=== PATIENT | female | born 1970 | race Caucasian/White ===

== ENCOUNTER 2017-06-01 20:56 | Emergency (ER) | payer OTHER ==
[~2017-06-01 20:56] MED LIST: PREDNISONE10 M2 PO
[2017-06-01 21:21] VITALS: BP 111/74
[2017-06-01] MEDS ORDERED: FLUOXETINE HCL20 M2 PO (21:22)
[2017-06-01] MEDS ORDERED: TRAZODONE HCL50 M1 PO (21:22)
[2017-06-01] MEDS ORDERED: CHANTIX1 MG PO (21:22)
[2017-06-01] MEDS ORDERED: LYRICA75 M1 PO (21:23)
[2017-06-01] MEDS ORDERED: ALPRAZOLAM0.25 M1 PO (21:23)
[2017-06-01] MEDS ORDERED: ABILIFY10 M1 PO (21:23)
[2017-06-01] MEDS ORDERED: INCRUSE INH (21:24)
[2017-06-01] MEDS ORDERED: CYCLOBENZAPRINE10 M1 PO (22:52)
[2017-06-01] MEDS ORDERED: IBUPROFEN800 M1 PO (22:52)
--- NOTE | 2017-06-01 22:53 | ED GENERAL ADULT ---
History of Present Illness General Chief Complaint: Low Back Pain/Injury Stated Complaint: SHOULDER/LOWER BACK PAIN S/P LIFTING GARBAGE CANS Source: patient Exam Limitations: no limitations Vital Signs & Intake/Output Vital Signs & Intake/Output Vital Signs Date Time Temp Pulse Resp B/P B/P Pulse O2 O2 Flow FiO2 Mean Ox Delivery Rate 06/011 78 20 111/74 98 ED Intake and Output 06/02 0000 06/01 1200 Intake Total 150 Output Total Balance 150 Intake, Oral 150 Patient 160 lb Weight Allergies Coded Allergies: amoxicillin (Severe, THROAT CLOSES 04/28/17) clavulanic acid (From AUGMENTIN) (Severe, THROAT CLOSES 04/28/17) levofloxacin (From LEVAQUIN) (Severe, THROAT CLOSES 04/28/17) loracarbef (From LORABID) (Severe, THROAT CLOSES 04/28/17) penicillin G (Severe, THROAT CLOSES 04/28/17) Sulfa (Sulfonamide Antibiotics) (Intermediate, RASH 04/28/17) azithromycin (Intermediate, RASH 04/28/17) meperidine (From DEMEROL) (Intermediate, VOMIT 04/28/17) codeine (Intermediate, VOMIT 05/13/17) Reconcile Medications Alprazolam 0.25 MG TABLET 1 TAB PO DAILY NEEDED ANXIETY (Reported) Aripiprazole (Abilify) 10 MG TABLET 1 TAB PO DAILY ANXIETY (Reported) Cyclobenzaprine HCl 10 MG TABLET 1 TAB PO TID PRN pain Fluoxetine HCl 20 MG CAPSULE 1 CAP PO DAILY DEPRESSION (Reported) Ibuprofen 800 MG TABLET 1 TAB PO TID PRN pain [INCRUSE] 1 PUFF INH DAILY COPD (Reported) Pregabalin (Lyrica) 75 MG CAPSULE 1 CAP PO BID ANXIETY (Reported) Trazodone HCl 50 MG TABLET 1 TAB PO QPM SLEEP (Reported) Varenicline Tartrate (Chantix) 1 MG TABLET 1 TAB PO BID SMOKING (Reported) Triage Note: PER PT LIFTING GARBAGE CAN THIS AM CO PAIN TO RT SHOULDER AND LOW BACK NO INCONTINENCE AMBULATORY WITH STIFF GAIT Triage Nurses Notes Reviewed? yes Onset: Abrupt Duration: day(s): (1), constant, continues in ED Timing: single episode today Injury Environment: home Severity: moderate, severe Severity Numbers: 8 No Modifying Factors: none Associated Symptoms: back pain LMP (ages 10-50): unknown : No Patient currently breastfeeds: No HPI: 46-year-old female past medical history of COPD, anxiety, fibromyalgia presents for evaluation of right shoulder pain and right lower back pain and right hip pain. Patient states that she was lifting a heavy garbage can today before the symptoms started. The pain is worse with any type of movement but she is able to walk. She's been taking Excedrin without any improvement. No numbness or tingling no bowel or bladder dysfunction no abdominal pain or fever. There was no direct trauma. (Sky Moreno) Past History Travel History Traveled to [place] past 21 day No Medical History Any Pertinent Medical History? see below for history Neurological: NONE EENT: NONE Cardiovascular: NONE Respiratory: COPD Renal: NONE Musculoskeletal: fibromyalgia Psychiatric: anxiety, depression, PTSD Endocrine: NONE Blood Disorders: NONE Cancer(s): NONE AURIST/Reproductive: NONE Surgical History Surgical History: non-contributory Psychosocial History What is your primary language Albanian Tobacco Use: Never used Family History Hx Contributory? No (Sky Moreno) Review of Systems Review of Systems Constitutional: Reports: no symptoms. EENTM: Reports: no symptoms. Respiratory: Reports: no symptoms. Cardiovascular: Reports: no symptoms. GI: Reports: no symptoms. Genitourinary: Reports: no symptoms. Musculoskeletal: Reports: see HPI, back pain, joint pain, muscle pain, muscle stiffness. Skin: Reports: no symptoms. Neurological/Psychological: Reports: no symptoms. Hematologic/Endocrine: Reports: no symptoms. Immunologic/Allergic: Reports: no symptoms. All Other Systems: Reviewed and Negative (Sky Moreno) Physical Exam Physical Exam General Appearance: well developed/nourished, no apparent distress, alert, awake Head: atraumatic, normal appearance Eyes: Bilateral: normal appearance, PERRL, EOMI. Ears, Nose, Throat: normal pharynx, normal ENT inspection, hearing grossly normal Neck: normal inspection, supple, full range of motion Respiratory: normal breath sounds, chest non-tender, no respiratory distress, lungs clear Cardiovascular: regular rate/rhythm, normal peripheral pulses Peripheral Pulses: 2+ radial (R), 2+ radial (L) Gastrointestinal: soft, non-tender Back: normal inspection, normal range of motion, no vertebral tenderness, right- sided lumbar paraspinous muscles tender to palpation. No bruising swelling and abrasions no step-offs or deformities no midline pain Extremities: normal inspection, no edema, pain to palpation of the right deltoid and right trapezius muscles. No bruising swelling or abrasions. Full range of motion of the right shoulder is intact with pain. There is pain to palpation of the right hip. Patient is able to walk and bear weight no bruising swelling or abrasions. Neurovascular supply is intact bilateral upper and lower extremities Neurologic/Psych: no motor/sensory deficits, awake, alert, oriented x 3, normal gait Skin: intact, normal color, warm/dry Lymphatic: no anterior cervical milagros Core Measures ACS in differential dx? No CVA/TIA Diagnosis: No Sepsis Present: No Sepsis Focused Exam Completed? No (Sky Moreno) Progress Differential Diagnoses I considered the following diagnoses in my evaluation of the patient: [Muscle strain, fracture, muscle tear] Plan of Care: Patient seen and evaluated. She has tenderness in her right shoulder right lower back and right hip after heavy lifting. There was no direct trauma. No bony point tenderness to suggest fracture. Patient is able to walk and bear weight without difficulty. No bruising swelling or abrasions. She is moving all extremities equally. Patient be treated symptomatically with ibuprofen and Flexeril. Advised rest avoid excessive physical activity. Follow-up with primary care doctor. Discussed return precautions patient agrees the plan. Initial ED EKG: none (Sky Moreno) Departure Departure Disposition: HOME OR SELF CARE Condition: Stable Clinical Impression Primary Impression: Muscle strain Referrals: Unknown (PCP) Additional Instructions: Rest, avoid heavy lifting bending or excessive physical activity. Use ibuprofen 800 mg every 8 hours with food as needed for pain. Cyclobenzaprine is a muscle relaxer that can also be used every 8 hours as may cause drowsiness. Make a follow-up with your primary care doctor to review all results of today's visit monitor symptoms return with any concerns. Departure Forms: Customer Survey General Discharge Information Prescriptions: Current Visit Scripts Ibuprofen 1 TAB PO TID PRN pain #30 TAB Cyclobenzaprine HCl 1 TAB PO TID PRN pain #30 TAB (Sky Moreno) PA/BUNDLING MACHINE OPERATOR Co-Sign Statement Statement: ED Attending supervision documentation- [] I saw and evaluated the patient. I have also reviewed all the pertinent lab results and diagnostic results. I agree with the findings and the plan of care as documented in the PA's/BUNDLING MACHINE OPERATOR's documentation. [x] I have reviewed the ED Record and agree with the PA's/BUNDLING MACHINE OPERATOR's documentation. [] Additions or exceptions (if any) to the PAs/BUNDLING MACHINE OPERATOR's note and plan are summarized below: [] (Ruddy BALDERRAMA,Shant Hart) Critical Care Note Critical Care Note Critical Care Time: non-applicable (Kel GAN,Sky)
== END 2017-06-01 23:13 ==
LOC: ERH 20:56
DX: S46.911A Strain of unspecified muscle, fascia and tendon at shoulder and upper arm level, right arm, initial encounter (principal); S39.012A Strain of muscle, fascia and tendon of lower back, initial encounter; X58.XXXA Exposure to other specified factors, initial encounter; Y92.9 Unspecified place or not applicable; Y93.9 Activity, unspecified

== ENCOUNTER 2017-07-30 22:37 | Inpatient (IN) | payer OTHER ==
[~2017-07-30] VITALS: Ht 170.2 cm; Wt 85.3 kg
[~2017-07-30 22:37] MED LIST changes: +ABILIFY10 M1 PO; +ALPRAZOLAM0.25 M1 PO; +CHANTIX1 MG PO; +CYCLOBENZAPRINE10 M1 PO; +FLUOXETINE HCL20 M2 PO; +IBUPROFEN800 M1 PO; +INCRUSE INH; +LYRICA75 M1 PO; +TRAZODONE HCL50 M1 PO
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
[2017-07-30 23:40] LABS: ABSOLUTE BASOPHIL COUNT 0.1 /CUMM (0.0-0.2); ABSOLUTE EOSINOPHIL COUNT 0.3 /CUMM (0.0-0.7); ABSOLUTE GRANULOCYTE CT 5.3 /CUMM (1.4-6.5); ABSOLUTE LYMPH COUNT 2.8 /CUMM (1.2-3.4); ABSOLUTE MONOCYTE COUNT 0.7 /CUMM (0.10-0.60); BASOPHIL % 0.9 % (0.0-2.0); EOSINOPHIL % 3.1 % (0-5); GRANULOCYTE % 58.1 % (42.2-75.2); HEMATOCRIT 44.5 % (37-47); MEAN CORPUSCULAR HGB 30.6 PG (27.0-31.0); MEAN CORPUSCULAR HGB CONC 34.9 G/DL (33.0-37.0); MEAN CORPUSCULAR VOLUME 87.6 FL (81.0-99.0); MEAN PLATELET VOLUME 8.3 FL (7.4-10.4); PLATELET COUNT 332 /CUMM (130-400); RBC DISTRIBUTION WIDTH 13.3 % (11.5-14.5); RED BLOOD CELL CT 5.08 /CUMM (4.20-5.40); WHITE BLOOD CELL COUNT 9.1 /CUMM (4.8-10.8)
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
[2017-07-31 16:28] VITALS: BP 128/64
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
[2017-07-31] MEDS ORDERED: HYDROXYZINE HCL25 M2 PO (16:33)
[2017-07-31 20:19] VITALS: BP 116/66
[2017-08-01 07:41] VITALS: BP 110/58
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
[2017-08-01 12:18] VITALS: BP 109/72
--- NOTE | 2017-08-01 14:37 | History & Physical ---
General Information and HPI MD Statement: I have seen and personally examined IGOR BURGESS and documented this H&P. The patient is a 46 year old F who presented with a patient stated chief complaint of depression and suicidal ideation. . Source of Information: patient Exam Limitations: no limitations History of Present Illness: The patient breanna 46 yo female with h/o anxiety/depression, IBS, and asthma who presented with c/o depression/suicidal ideation after her fiance broke up with her. She [facility] and she planned an overdose. She had a previous attempt last year. At the time of my exam the patient was appropriate and was able to answer questions without difficulty. She did note some dyspnea as was not taking her Incruse. She does note IBS which is aggravated by anxiety, however takes no medication. Allergies/Medications Allergies: Coded Allergies: amoxicillin (Severe, THROAT CLOSES 04/28/17) clavulanic acid (From AUGMENTIN) (Severe, THROAT CLOSES 04/28/17) levofloxacin (From LEVAQUIN) (Severe, THROAT CLOSES 04/28/17) loracarbef (From LORABID) (Severe, THROAT CLOSES 04/28/17) penicillin G (Severe, THROAT CLOSES 04/28/17) Sulfa (Sulfonamide Antibiotics) (Intermediate, RASH 04/28/17) azithromycin (Intermediate, RASH 04/28/17) meperidine (From DEMEROL) (Intermediate, VOMIT 04/28/17) codeine (Intermediate, VOMIT 05/13/17) Home Med list Aripiprazole (Abilify) 10 MG TABLET 1 TAB PO DAILY ANXIETY (Reported) Fluoxetine HCl 20 MG CAPSULE 1 CAP PO DAILY DEPRESSION (Reported) Hydroxyzine Hydrochloride (Atarax) 25 MG TAB ANXIETY (Reported) Ibuprofen 800 MG TABLET 1 TAB PO TID PRN pain Pregabalin (Lyrica) 75 MG CAPSULE 1 CAP PO BID ANXIETY (Reported) Trazodone HCl 50 MG TABLET 1 TAB PO QPM SLEEP (Reported) Compliance With Home Meds: GOOD Past History Travel History Traveled to [place] past 21 day No Medical History Neurological: NONE EENT: NONE Cardiovascular: NONE Respiratory: COPD Gastrointestinal: irritable bowel syndrome Hepatic: NONE Renal: NONE Musculoskeletal: fibromyalgia Psychiatric: anxiety, depression, PTSD Endocrine: NONE Blood Disorders: NONE Cancer(s): NONE 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 . FATHER (HTN, LUNG CANCER). . GRANDPARENTS (DM). Psychosocial History Primary Language: Greek Smoking Status: Current Everyday Smoker ETOH Use: denies use Illicit Drug Use: denies illicit drug use Functional Ability Ambulation: independent Review of Systems Review of Systems Constitutional: Denies: no symptoms. EENTM: Denies: no symptoms. Cardiovascular: Denies: no symptoms. Respiratory: Reports: wheezing (USES INHALERS). GI: Reports: see HPI (IBS- CRAMPS). Genitourinary: Denies: no symptoms. Musculoskeletal: Denies: no symptoms. Skin: Denies: no symptoms (HAS SCARS ON NECK/UP CHEST). Neurological/Psychological: Reports: anxiety, depressed, emotional problems. Hematologic/Endocrine: Denies: no symptoms. Immunologic/Allergic: Denies: no symptoms. Exam & Diagnostic Data Last 24 Hrs of Vital Signs/I&O Vital Signs Date Time Temp Pulse Resp B/P B/P Pulse O2 O2 Flow FiO2 Mean Ox Delivery Rate 08/01 1953 98.4 83 101/67 08/01 1625 83 108/71 08/01 1218 67 109/72 06 0741 97.0 73 110/58 Intake & Output 08/01 1600 08/01 0800 08/01 0000 Intake Total Output Total Balance Patient 188 lb Weight Physical Exam General Appearance Alert, Oriented X3, Cooperative, No Acute Distress Skin No Rashes, No Breakdown, HYPOPIG SCARS ON NECK/UP CHEST HEENT Atraumatic, PERRLA, EOMI (WEARS GLASSES FOR READING) Neck Supple, No JVD, No thryomegaly, +2 Carotid Pulse wo Bruit, No LAD Cardiovascular Regular Rate, Normal S1, Normal S2, No Murmurs Lungs Clear to Auscultation, Normal Air Movement Abdomen Normal Bowel Sounds, Soft, No Tenderness, No Hepatospenomegaly, No Masses Neurological Exam Findings: Normal Gait, Normal Speech, Strength at 5/5 X4 Ext, Normal Tone, Sensation Intact, Cranial Nerves 3-12 NL, Reflexes 2+ Cranial Nerves II through XII: INTACT Extremities No Clubbing, No Cyanosis, No Edema, Normal Pulses, No Tenderness/ Swelling Vascular Normal Pulses, Pulses Symmetrical Last 24 Hrs of Labs/Raghu: Laboratory Tests 07/30/172326: Serum Alcohol < 10.0 07/30/172326: Anion Gap 13, Estimated GFR > 60, BUN/Creatinine Ratio 11.3, Glucose 127 H, Calcium 9.2, Total Bilirubin 0.3, AST 19, ALT 28, Alkaline Phosphatase 68, Total Protein 7.1, Albumin 4.0, Globulin 3.1, Albumin/Globulin Ratio 1.3, Total Beta HCG NEGATIVE, CBC w Diff NO MAN DIFF REQ, RBC 5.08, MCV 87.6, MCH 30.6, MCHC 34.9, RDW 13.3, MPV 8.3, Gran % 58.1, Lymphocytes % 30.4, Monocytes % 7.5, Eosinophils % 3.1, Basophils % 0.9, Absolute Granulocytes 5.3, Absolute Lymphocytes 2.8, Absolute Monocytes 0.7 H, Absolute Eosinophils 0.3, Absolute Basophils 0.1, Urine Opiates Screen < 100, Methadone Screen 41, Barbiturate Screen < 60, Ur Phencyclidine Scrn < 6.00, Amphetamines Screen 204, U Benzodiazepines Scrn < 85, Urine Cocaine Screen < 50, Urine Cannabis Screen < 5.00 Assessment/Plan Assessment: Impression/Plan: #Depression/Suicidal Ideation- with plan to take overdose. Precipitated after breaking up with her fiance. Plan: Admit to [facility]- care as per psychiatry. #H/O Asthma- lungs clear at present. Patient uses inhalers. Plan: Continue Albuterol and add Spiriva (patient normally using Incruse). #H/O Irritable Bowel Syndrome- no symptoms at present. States anxiety makes it worse. She does not take medications. Plan: Will observe. As Ranked By This Provider Problem List: 1. Suicidal ideation 2. Asthma 3. Irritable bowel syndrome Miscellaneous Miscellaneous Documentation Attending Case Discussed With: Unique BALDERRAMA,Shaquille Primary Care Physician: Tammy Juárez APRN (in [place]) Patient sees these Specialists None Level of Patient Care: [facility] Consults Needed: Consulting Physician: None Resident Review Statement Other Findings: As above. Attending MD Review Statement Attending Statement Attending MD Statement: examined this patient, reviewed EMR data (avail), discussed with nursing, amended to note Attending Assessment/Plan: As above.
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
[2017-08-01 16:25] VITALS: BP 108/71
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
[2017-08-01 19:54] VITALS: BP 101/67
[2017-08-02 07:59] VITALS: BP 107/54
--- NOTE | 2017-08-02 08:15 | SOCIAL WORKER PROG NOTE PSYCH ---
Social Work Progress Note Progress Note Candie told me she called the [facility] Hotline last night to complete a screening for usp services. She was told that she would need to call back when she knows what her d/c date will be. Dr. Calhoun and I met with Candie this morning. She reported doing well and that she is ready for discharge. She said she feels emotionally stable and is no longer having thoughts about not wanting to live. She feels better now that her and her fiance have talked. She appears motivated for continued tx and wanting to "get her life back in order". She said she needs to work on getting her daughter back in her life. Her daughter currently lives with her Father in [place]. She is looking to call [facility] Services today to see about bed availability, but stated that if nothing is available she will stay with her friend Sherry here in [place]. She signed a release for [facility]'s outpatient services. She has a car and is driving there 2x's a week for therapy. She is happy to continue services in the [place] area. Her fiance lives out that way. She mentioned that she thinks she is going to stop the EMDR tx she had started. She had an appt. earlier in the week and reported that it didn't go well and gave her flashbacks. She said she doesn't feel ready to deal with her trauma at this time. Called [facility] and left a message. Candie was not able to obtain a bed at the [facility] today. She called her friend Sherry and confirmed she could stay with her. Sherry will be bringing Candie's car to the unit for d/c today. Candie can continue to follow up and call [facility] to see if bed availability changes. Dr. Calhoun was able to speak with Ashley Schreiber's med prescriber. She will see Venita on 08/08 at 11am.
[2017-08-02] MEDS ORDERED: CHANTIX1 MG PO (11:30)
[2017-08-02] MEDS ORDERED: INCRUSE INH (11:30)
--- NOTE | 2017-08-02 11:31 | Patient Discharge Instructions ---
Psych Discharge Inst General Discharge Information Reason for Admission: thoughts about wishing Psy Discharge Primary Diag+ Disruptive Mood Dysregula By history: Bipolar II, By History Only: Bipolar II Psy Discharge Secondary Diag+ Adjustment Disorder with Summary Tests/Major Procedures Lab Hemoglobin A1c 5.5 % 08/02/17 0637 Lipid Panel still pending Studies Pending at DC: Lipid Panel Patient Instructions Contact Information Your Psychiatrist on [facility] was Shaquille Calhoun MD * If you are experiencing an emergency related to this hospitalization, please call [phone] to contact the treating psychiatrist or the psychiatrist-on- call. * To Request a copy of your medical records, please contact the Medical Records Department at [phone]. * To request results of studies pending at the time of discharge, please call [phone]. * Continue your Medications until directed to stop by your Healthcare provider. General Medication Information Please continue to take your new medications and your continued home medications , unless otherwise indicated on your discharge medication list, or unless directed by your MD or [facility] to stop them. Special Instructions Diet Regular Activity Normal - Tobacco Use Treatment Offered Post DC Medications Offered: Script Given-See Med List Post DC Tobacco Treatment Plan: Refused Tobacco Tx Pgm - EtOH/Drug Use D/O Treatment Offered Post DC Medications Offered: NA-No EtOH/Drug Use D/O Post DC EtOH/SubAbuse TX Plan: NA-No EtOH/Drug Use D/O Metabolic Screening Patient on a neuroleptic(s) . Enter below results for Hemoglobin A1C, and lipid panel if obtained during the last 365 days. BMI: 29.000 Blood Pressure: 107/[address] [facility] (If applicable): Lab Hemoglobin A1c 5.5 % 08/02/1737 Hemoglobin A1c 5.5 % 08/02/17 0637 Lipid Panel still pending Advance Directives Does the Patient have Medical Advance Directives No/Refused further info Does Pt have Psychiatric Advance Directives? No/Refused further info Does Patient have a Designated Surrogate Decision Maker: No Information About Psychiatric Advance Directives Provided? Refused Discharge Plan [facility]
[2017-08-02 12:28] VITALS: BP 99/58
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
[2017-08-02] MEDS ORDERED: HYDROXYZINE HCL25 M3 PO (13:38)
[2017-08-02] MEDS ORDERED: LYRICA150 M1 PO (13:44)
[2017-08-02] MEDS ORDERED: FLUOXETINE HCL40 M1 PO (13:46)
[2017-08-02] MEDS ORDERED: ABILIFY5 M1 PO (14:54)
--- NOTE | 2017-08-02 16:13 | SOCIAL WORKER PROG NOTE PSYCH ---
Social Work Progress Note Faxed Referral(s) Referred To: [facility] Transition of Care Documents sent: Health Summary Faxed to: Ashley Burns Fax #: [phone] Faxed by: Priscilla Corbin Date faxed: 08/02/17 Time Faxed: [phone]
== END 2017-08-02 15:40 | DRG 753 ==
LOC: ERH 22:37 → ERHI 07-31 12:35 → CP SOUTH 07-31 12:35
PROVIDERS: Emergency Medicine; Psychiatry & Neurology Psychiatry
DX: F34.81 Disruptive mood dysregulation disorder (principal); F43.20 Adjustment disorder, unspecified; F31.81 Bipolar II disorder
CPT/HCPCS: 36415; 80307; 93005; 93010; G0480; J0401; J3490

== ENCOUNTER 2017-08-07 22:10 | Emergency (ER) | payer OTHER ==
[~2017-08-07 22:10] MED LIST changes: +ABILIFY5 M1 PO; +FLUOXETINE HCL40 M1 PO; +HYDROXYZINE HCL25 M2 PO; +HYDROXYZINE HCL25 M3 PO; +LYRICA150 M1 PO
--- NOTE | 2017-08-07 23:31 | ED PSYCHIATRIC COMPLAINT ---
See Addendum History of Present Illness General Chief Complaint: Psychiatric Related Complaint Stated Complaint: SPOKE TO CRISIS, ADIVSED TO COME IN, DEPRESSED -SI Source: patient Exam Limitations: no limitations Vital Signs & Intake/Output Vital Signs & Intake/Output Vital Signs Date Time Temp Pulse Resp B/P B/P Pulse O2 O2 Flow FiO2 Mean Ox Delivery Rate 08/07 2214 97.8 89 16 133/83 98 Room Air ED Intake and Output 08/08 0000 08/07 1200 Intake Total Output Total Balance Patient 185 lb Weight Weight Reported by Patient Measurement Method Allergies Coded Allergies: amoxicillin (Severe, THROAT CLOSES 04/28/17) clavulanic acid (From AUGMENTIN) (Severe, THROAT CLOSES 04/28/17) levofloxacin (From LEVAQUIN) (Severe, THROAT CLOSES 04/28/17) loracarbef (From LORABID) (Severe, THROAT CLOSES 04/28/17) penicillin G (Severe, THROAT CLOSES 04/28/17) Sulfa (Sulfonamide Antibiotics) (Intermediate, RASH 04/28/17) azithromycin (Intermediate, RASH 04/28/17) meperidine (From DEMEROL) (Intermediate, VOMIT 04/28/17) codeine (Intermediate, VOMIT 05/13/17) Reconcile Medications Aripiprazole (Abilify) 5 MG TABLET 5 MG PO DAILY mood Fluoxetine HCl 40 MG CAPSULE 1 CAP PO DAILY depression Hydroxyzine Hydrochloride (Atarax) 25 MG TAB ANXIETY (Reported) Ibuprofen 800 MG TABLET 1 TAB PO TID PRN pain [INCRUSE] 1 PUFF INH DAILY COPD Pregabalin (Lyrica) 150 MG CAPSULE 1 CAP PO BID Fibromyalgia Trazodone HCl 50 MG TABLET 1 TAB PO QPM SLEEP (Reported) Varenicline Tartrate (Chantix) 1 MG TABLET 1 TAB PO BID SMOKING Triage Note: PT DC FROM [facility]PS ON 08/02/17. REPORTS DEPRESSION AND ANXIETY PERSISTS RELATED TO HOMELESSNESS. STATES, "I DIDNT KNOW WHERE TO GO." DENIES SI/HI. REPORTS COMPLIANCE WITH ALL MEDS. STATES TRYING TO GET INTO [facility]. Triage Nurses Notes Reviewed? yes Onset: Gradual Duration: week(s): Timing: recent history Severity: moderate Associated Symptoms: anxiety HPI: 46-year-old woman history of depression presents with recurrent depression. She states that she was discharged earlier this month due to depressive episode and, "I am just not any better. I continue to be so depressed. I never leave my house. I just a home and cry all day." She denies suicidality, homicidality, hallucinations. She notes that she is homeless, living in her car. She has a few friends but no with whom she can live. She has no family support. She denies drug or alcohol abuse. Past History Travel History Traveled to [place] past 21 day No Medical History Any Pertinent Medical History? see below for history Neurological: NONE EENT: NONE Cardiovascular: NONE Respiratory: COPD Gastrointestinal: irritable bowel syndrome Hepatic: NONE Renal: NONE Musculoskeletal: fibromyalgia Psychiatric: anxiety, depression, PTSD Endocrine: NONE Blood Disorders: NONE Cancer(s): NONE CAT SKINNER/Reproductive: NONE Surgical History Surgical History: BLADDER SUSPENSION BLADDER SUSPENSION Psychosocial History Who do you live with Other (see notes) What is your primary language Hungarian Tobacco Use: Never used ETOH Use: denies use Illicit Drug Use: denies illicit drug use Family History Family History, If Any: MOTHER (DM, HTN). . FATHER (HTN, LUNG CANCER). . GRANDPARENTS (DM). Hx Contributory? No Review of Systems Review of Systems Constitutional: Denies: see HPI. Physical Exam Physical Exam General Appearance: no apparent distress Neurological/Psychiatric: no motor/sensory deficits, awake, alert, flat, oriented x 3 Comments: Review of Systems - except as otherwise noted in HPI Review of Systems Constitutional:no symptoms. EENTM:no symptoms. Respiratory:no symptoms. Cardiovascular:no symptoms. GI:no symptoms. Genitourinary:no symptoms. Musculoskeletal:no symptoms. Skin:no symptoms. Neurological/Psychological:no symptoms. Hematologic/Endocrine:no symptoms. Immunologic/Allergic:no symptoms. All Other Systems: Reviewed and Negative Physical Exam Physical Exam General Appearance: well developed/nourished, no apparent distress Head: atraumatic, normal appearance Eyes: Bilateral: normal appearance. Ears, Nose, Throat: normal pharynx, normal ENT inspection Neck: normal inspection, supple, full range of motion Respiratory: normal breath sounds, chest non-tender, no respiratory distress, quiet respiration, lungs clear Cardiovascular: regular rate/rhythm Gastrointestinal: normal bowel sounds, soft, non-tender, no organomegaly Back: normal inspection, normal range of motion Extremities: normal inspection, normal capillary refill, normal range of motion, no edema Neurologic/Psych: no motor/sensory deficits, awake, alert, oriented x 3, flat affect Skin: intact, normal color, warm/dry SAD PERSONS SAD PERSONS Response Value Age <19 or >45 years? yes 1 Depression/Hopelessness? yes 2 Single//? yes 1 Social Support? has no support 1 Total 5 SAD PERSONS Done? yes, patient not suicidal Progress Differential Diagnosis: depression versus other Plan of Care: Orders Procedure Date/time Status Regular Diet 08/08 B Active URINE DRUG SCREEN FOR ER ONLY 08/07 2308 Active ETHANOL 08/07 2308 Complete COMPREHENSIVE METABOLIC PANEL 08/07 2308 Complete CBC WITHOUT DIFFERENTIAL 08/07 2308 Complete ED CRISIS PSYCH CONSULT 08/07 2308 Active Current Medications Sig/Levy Start time Last Medication Dose Stop Time Status Admin Trazodone HCl 50 MG QPM 08/08 2100 UNVr (Desyrel) Aripiprazole 5 MG DAILY 08/08 899 UNVr (Abilify) Fluoxetine HCl 40 MG DAILY 08/08 899 UNVr (Prozac) Hydroxyzine HCl 25 MG TID 08/08 899 UNVr (Atarax) Nicotine 21 MG DAILY 08/08 899 UNVr (Nicoderm) Pregabalin 150 MG BID 08/08 899 UNVr (Lyrica) Ibuprofen 800 MG TID PRN 08/07 2344 AC (Motrin) Laboratory Tests 08/07/176: Anion Gap 11, Estimated GFR > 60, BUN/Creatinine Ratio 8.6, Glucose 97, Calcium 9.7, Total Bilirubin 0.4, AST 15, ALT 33, Alkaline Phosphatase 65, Total Protein 7.0, Albumin 4.0, Globulin 3.0, Albumin/Globulin Ratio 1.3, CBC w Diff NO MAN DIFF REQ, RBC 4.97, MCV 88.1, MCH 30.2, MCHC 34.3, RDW 13.5, MPV 8.2, Gran % 47.3, Lymphocytes % 40.8, Monocytes % 8.6, Eosinophils % 2.7, Basophils % 0.6, Absolute Granulocytes 4.5, Absolute Lymphocytes 3.8 H, Absolute Monocytes 0.8 H, Absolute Eosinophils 0.3, Absolute Basophils 0.1, Serum Alcohol < 10.0 Hand-Off Endorsed To: Hayder Kemp DO Endorsed Time: 0700 Pending: consult, labs Departure Departure Disposition: STILL A PATIENT Condition: Stable Clinical Impression Primary Impression: Depression Referrals: Patient Has No Primary Care Dr (PCP/Family) Departure Forms: Customer Survey General Discharge Information
[2017-08-08 00:04] LABS: ABSOLUTE BASOPHIL COUNT 0.1 /CUMM (0.0-0.2); ABSOLUTE EOSINOPHIL COUNT 0.3 /CUMM (0.0-0.7); ABSOLUTE GRANULOCYTE CT 4.5 /CUMM (1.4-6.5); ABSOLUTE LYMPH COUNT 3.8 /CUMM (1.2-3.4); ABSOLUTE MONOCYTE COUNT 0.8 /CUMM (0.10-0.60); BASOPHIL % 0.6 % (0.0-2.0); EOSINOPHIL % 2.7 % (0-5); GRANULOCYTE % 47.3 % (42.2-75.2); HEMATOCRIT 43.7 % (37-47); MEAN CORPUSCULAR HGB 30.2 PG (27.0-31.0); MEAN CORPUSCULAR HGB CONC 34.3 G/DL (33.0-37.0); MEAN CORPUSCULAR VOLUME 88.1 FL (81.0-99.0); MEAN PLATELET VOLUME 8.2 FL (7.4-10.4); PLATELET COUNT 320 /CUMM (130-400); RBC DISTRIBUTION WIDTH 13.5 % (11.5-14.5); RED BLOOD CELL CT 4.97 /CUMM (4.20-5.40); WHITE BLOOD CELL COUNT 9.4 /CUMM (4.8-10.8)
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
--- NOTE | 2017-08-08 13:55 | ED PSYCHIATRIST/APRN CONSULT ---
Psychiatrist/LINEN CONTROLLER ED Consult Assessment and Plan: Psychiatric consultation Date of consultation: 08/08/2017 and Reason for consultation: Risk evaluation for discharge History of present episode: Candie is a 46-year-old twice white female who was recently discharged from the inpatient psychiatric unit at [facility] (she was discharged 6 days ago). The patient presented to the emergency department with a chief complaint of "I had a bad night last night." The patient reportedly slept in her car. At the time of her discharge from the inpatient psychiatric unit 6 days ago the patient reported that she was going to be staying with a friend. Apparently there was a time limit on how many days the patient could stay with her friend and found herself having to sleep in her car the night before her arrival to the emergency room. The patient keeps repeating that she is not suicidal and that she would like help with housing but not an admission to the inpatient psychiatric unit. The patient reported that she does not want admission because we cannot help her with her issues (which is true). Past Psychiatric History: The patient was just discharged from the inpatient psychiatric unit 6 days ago. The patient was admitted then because of voicing thoughts of suicide after a breakup with her ex-boyfriend/ex fianc She reported that she was diagnosed with bipolar 2 The patient most recently was with [facility] before that she was with the [facility] of mental [facility] and addiction [facility] The patient had 1 suicide attempt in September 2016 by overdose and was noted to the inpatient psychiatric unit at [facility], the notes from the crisis suggest that it was a serious suicide attempt and that the patient was at [facility]'s ICU for about 3 days. The patient denied that she was intubated Substance Abuse History: The patient reported that she has been sober for about 7 years. She does have remote history of alcohol use disorder, no longer active. Medical/surgical history: The patient's history is significant for COPD and fibromyalgia Allergies: amoxicillin (Severe, THROAT CLOSES 04/28/17) clavulanic acid (From AUGMENTIN) (Severe, THROAT CLOSES 04/28/17) levofloxacin (From LEVAQUIN) (Severe, THROAT CLOSES 04/28/17) loracarbef (From LORABID) (Severe, THROAT CLOSES 04/28/17) penicillin G (Severe, THROAT CLOSES 04/28/17) Sulfa (Sulfonamide Antibiotics) (Intermediate, RASH 04/28/17) azithromycin (Intermediate, RASH 04/28/17) meperidine (From DEMEROL) (Intermediate, VOMIT 04/28/17) codeine (Intermediate, VOMIT 05/13/17) Current Medications: Trazodone HCl 50 mg Every night Ibuprofen (Ibuprofen) 800 MG TABLET: 1 Tablet ORAL THREE TIMES DAILY as needed for pain Hydroxyzine Hydrochloride (Atarax) 25 MG TAB: ORAL THREE TIMES DAILY Varenicline Tartrate (Chantix) 1 MG TABLET: 1 Tablet ORAL TWICE DAILY [INCRUSE]: 1 PUFF Inhale through mouth DAILY Aripiprazole (Abilify) 5 MG TABLET: 5 Milligram ORAL DAILY Pregabalin (Lyrica) 150 MG TWICE DAILY Fluoxetine HCl (Fluoxetine HCl) 40 MG DAILY Mental status examination: The patient was alert and oriented to time, place, and person. She was calm and cooperative. She showed reduced psychomotor activity. There were no abnormal behaviors. Her speech was normal. She was not pressured and she was not slurred. The patient reported that she is in a better mood today compared to yesterday. She reported that she is not thinking about suicide and not wishing . She denied having any violent thoughts or thoughts of homicide. She denied any sense of worthlessness about life and denied wishing or thinking of suicide. She denied violent thoughts or homicidal ideation. The patient denied hallucinations. Patient denied feeling paranoid, there were no delusions during the interview. The patient was coherent, there were no difficulties with thought organization and there was no thought disorder. The patient did not seem to have difficulties with information processing she showed reasonable attention and concentration. There was no evidence of short-term memory impairment. Assessment: The patient is a 46-year-old white female who was discharged from the inpatient psychiatric unit 6 days ago. Patient reported at the time of her discharge as she is currently staying with a friend. Apparently that was a short-term plan and she found herself sleeping in her car last night. The patient reported that she wants help with placement somewhere but denied having any thoughts of suicide and declined an offer to be readmitted to give her more time. She agreed to explore a bed at respite for this afternoon but if there are no openings she wants to be discharged and reported that she has managed on her own and that I cannot keep her against her will (which is accurate). She reported that she might be expecting $100 on might be able to stay in a hotel or motel if staying with a friend or family member does not follow through. The patient does carry some chronic risk factors for self-harm including past history of that as well as underlying borderline traits and impulsivity and disruptive mood dysregulation disorder, in addition to homelessness and financial issues. However, a careful evaluation of her risk factors versus protective and risk mitigating factors reveals that her risk is relatively low and that she may be discharged to continue her treatment as an outpatient with a [facility] she does attend DBT programming there as well as having an LINEN CONTROLLER for medication monitoring, she does have 1 more week of medications as per her discharge from Inpatient Psychiatry and she was advised to reschedule the appointment that she missed today. Diagnostis impression: Disruptive mood dysregulation disorder Adjustment disorder with mixed depression and anxiety Other specified personality disorder (borderline traits) Recommendations: The patient may be discharged from the emergency room at the will of the emergency physician as there is no need for inpatient psychiatric admission at this point. The patient gave permission to the crisis social media marketing manager to explore respite bed this afternoon There is no bit availability at respite the patient wishes to be discharged and declined an offer for admission The patient was encouraged to stay on the same exact medications that she was discharged with from Inpatient Psychiatry 6 days ago The patient was advised to contact [facility] and reschedule her appointment with the LINEN CONTROLLER (Ashley Burns APRN) which was scheduled for today at 11:00
[2017-08-08 16:57] VITALS: BP 122/55
== END 2017-08-08 18:17 ==
LOC: ERH 22:10
PROVIDERS: Pediatrics
DX: F32.9 Major depressive disorder, single episode, unspecified (principal)
CPT/HCPCS: 80307; G0463; G0480

== ENCOUNTER 2017-08-20 12:15 | Inpatient (IN) | payer OTHER ==
[~2017-08-20] VITALS: Ht 167.6 cm; Wt 83.6 kg
[2017-08-20] MEDS ORDERED: ACID REDUCER150 MG PO (12:34)
[2017-08-20] MEDS ORDERED: TOVIAZ8 M1 PO (12:35)
[2017-08-20] MEDS ORDERED: PROAIR HFA8.5 GM INH (12:36)
[2017-08-20] MEDS ORDERED: INCRUSE ELLI62.5 MCG PO (12:38)
[2017-08-20] MEDS ORDERED: NICOTINE GUM4 MG PO (12:39)
[2017-08-20 12:42] LABS: ABSOLUTE BASOPHIL COUNT 0 /CUMM (0.0-0.2); ABSOLUTE EOSINOPHIL COUNT 0.2 /CUMM (0.0-0.7); ABSOLUTE LYMPH COUNT 2.5 /CUMM (1.2-3.4); ABSOLUTE MONOCYTE COUNT 0.6 /CUMM (0.10-0.60); BASOPHIL % 0.3 % (0.0-2.0); EOSINOPHIL % 1.5 % (0-5); GRANULOCYTE % 70.8 % (42.2-75.2); MEAN CORPUSCULAR HGB 30.1 PG (27.0-31.0); MEAN CORPUSCULAR HGB CONC 33.5 G/DL (33.0-37.0); MEAN CORPUSCULAR VOLUME 89.9 FL (81.0-99.0); MEAN PLATELET VOLUME 7.8 FL (7.4-10.4); PLATELET COUNT 354 /CUMM (130-400); RBC DISTRIBUTION WIDTH 13.7 % (11.5-14.5); RED BLOOD CELL CT 5.01 /CUMM (4.20-5.40); WHITE BLOOD CELL COUNT 11.3 /CUMM (4.8-10.8)
--- NOTE | 2017-08-20 12:48 | ED PSYCHIATRIC COMPLAINT ---
History of Present Illness General Chief Complaint: Psychiatric Related Complaint Stated Complaint: +SI COMMENT REQUESTING PSAlejandro PEARL Source: patient, old records Exam Limitations: no limitations Vital Signs & Intake/Output Vital Signs & Intake/Output Vital Signs Date Time Temp Pulse Resp B/P B/P Pulse O2 O2 Flow FiO2 Mean Ox Delivery Rate 08/21 0907 98.8 73 18 112/72 98 Room Air 08/21 0646 97.8 58 16 104/67 97 Room Air 08/21 0321 97.8 60 16 109/78 97 Room Air 08/20 2330 97.9 69 20 111/69 94 Room Air 08/20 2141 98.0 62 18 98/64 93 Room Air 08/20 1919 99.0 66 20 104/56 96 Room Air 08/20 1703 98.1 91 20 128/75 97 Room Air 08/20 1529 98.0 74 20 103/56 97 Room Air 08/20 1220 98.0 91 18 122/80 96 Room Air ED Intake and Output 08/21 0000 08/20 1200 Intake Total 0 Output Total Balance 0 Intake, Oral 0 Patient 180 lb Weight Weight Reported by Patient Measurement Method Allergies Coded Allergies: amoxicillin (Severe, THROAT CLOSES 04/28/17) clavulanic acid (From AUGMENTIN) (Severe, THROAT CLOSES 04/28/17) levofloxacin (From LEVAQUIN) (Severe, THROAT CLOSES 04/28/17) loracarbef (From LORABID) (Severe, THROAT CLOSES 04/28/17) penicillin G (Severe, THROAT CLOSES 04/28/17) Sulfa (Sulfonamide Antibiotics) (Intermediate, RASH 04/28/17) azithromycin (Intermediate, RASH 04/28/17) meperidine (From DEMEROL) (Intermediate, VOMIT 04/28/17) codeine (Intermediate, VOMIT 05/13/17) Reconcile Medications Albuterol Sulfate (Proair Hfa) 90 MCG HFA.AER.AD 2 PUF INH Q4-6 PRN PRN SHORTNESS OF BREATH (Reported) Aripiprazole (Abilify) 5 MG TABLET 5 MG PO DAILY mood Fesoterodine Fumarate (Toviaz) 8 MG TAB.ER.24H 1 TAB PO DAILY BLADDER ( Reported) Fluoxetine HCl 40 MG CAPSULE 1 CAP PO DAILY depression Hydroxyzine Hydrochloride (Atarax) 25 MG TAB 1 TAB PO TID PRN ANXIETY ( Reported) Nicotine Polacrilex (Nicotine Gum) 4 MG GUM 1 GUM PO DAILY PRN SMOKING ( Reported) Pregabalin (Lyrica) 150 MG CAPSULE 1 CAP PO BID Fibromyalgia Ranitidine HCl (Acid Early Childhood Educator Aide) 150 MG TABLET 1 TAB PO DAILY GI (Reported) Trazodone HCl 50 MG TABLET 1 TAB PO QPM SLEEP (Reported) Umeclidinium Lampe (Incruse Ellipta) 62.5 MCG/ACTUATION BLST.W.DEV 1 PUFF PO DAILY BREATHING PROBLEMS (Reported) Varenicline Tartrate (Chantix) 1 MG TABLET 1 TAB PO BID SMOKING Triage Note: 46 Y/O FEMALE STATES SHE IS FEELING SUICIDAL "EVERY DAY". PT STATES SHE WAS [facility]ENT[facility] IN [facility] AND ALSO RECENTLY AT A [facility] FOR 2 WEEKS; MADE A SUICIDAL STATEMENT TODAY AND WAS ADVISED TO COME TO ED FOR EVAL. STATES SHE NOW ALSO HAS NOWHERE TO GO. DENIES HI. DENIES DRUG/ALCOHOL USE. DENIES PHYSICAL COMPLAINTS. TEARFUL IN TRIAGE Triage Nurses Notes Reviewed? yes Onset: Gradual Duration: getting worse Severity: severe Severity Numbers: 10 HPI: Patient is a 46-year-old female with a past medical history of remote alcohol dependency bipolar disorder, mood disorder and anxiety depression who presents to the emergency room for concerns of worsening depression and suicide ideation, patient currently lives in a [facility] house and is brought in by ambulance for concerns of telling a staff member that she no longer wants to wake up and states that if she goes to bed she is okay with not ever waking up patient states that she is compliant with her medications and denies any specific suicidal plan Denies any auditory or visual hallucinations denies any smoking drug use Patient denies any illness (Baron Sargent) Past History Travel History Traveled to [place] past 21 day No Medical History Any Pertinent Medical History? see below for history Neurological: NONE EENT: NONE Cardiovascular: NONE Respiratory: COPD Gastrointestinal: irritable bowel syndrome Hepatic: NONE Renal: NONE Musculoskeletal: fibromyalgia Psychiatric: anxiety, depression, PTSD Endocrine: NONE Blood Disorders: NONE Cancer(s): NONE PROCUREMENT BUYER/Reproductive: NONE Surgical History Surgical History: BLADDER SUSPENSION BLADDER SUSPENSION Psychosocial History Who do you live with Other (see notes) What is your primary language Persian Tobacco Use: Quit >30 days ago Family History Family History, If Any: MOTHER (DM, HTN). . FATHER (HTN, LUNG CANCER). . GRANDPARENTS (DM). Hx Contributory? No (Baron Sargent) Review of Systems Review of Systems Constitutional: Reports: no symptoms. EENTM: Reports: no symptoms. Respiratory: Reports: no symptoms. Cardiovascular: Reports: no symptoms. GI: Reports: no symptoms. Genitourinary: Reports: no symptoms. Musculoskeletal: Reports: no symptoms. Skin: Reports: no symptoms. Neurological/Psychological: Reports: see HPI. Hematologic/Endocrine: Reports: no symptoms. Immunologic/Allergic: Reports: no symptoms. All Other Systems: Reviewed and Negative (Baron Sargent) Physical Exam Physical Exam General Appearance: alert, mild distress Head: atraumatic Eyes: Bilateral: normal appearance. Ears, Nose, Throat: hearing grossly normal Neck: normal inspection Respiratory: chest non-tender Cardiovascular: regular rate/rhythm Gastrointestinal: normal bowel sounds Neurological/Psychiatric: awake, TEARFUL Appearance/Memory/Insight: appropriate appearance, appropriate insight Behavoir/Eye Contact/Speech: cooperative Skin: intact, normal color SAD PERSONS SAD PERSONS Response Value Age <19 or >45 years? yes 1 Depression/Hopelessness? yes 2 Previous Attempts/Psych Care yes 1 Single//? yes 1 Social Support? has no support 1 Stated Future Intent? yes 2 Total 8 SAD PERSONS Done? yes (Baron Sargent) Progress Differential Diagnosis: drug intoxication, drug overdose, drug withdrawal, electrolyte abnormality, encephalitis, hypoglycemia, hypothyroidism, IC hem/mass /tumor, meningitis Plan of Care: Orders Procedure Date/time Status Admit to inpatient psych 08/21 1048 Active Regular Diet 08/20 D Active Add-on Test (ER Only) 08/20 1248 Active HUMAN BETA HCG SCREEN 08/20 1236 Complete Continuous Observation Monitor 08/20 1230 Active URINE DRUG SCREEN FOR ER ONLY 08/20 1230 Complete URINALYSIS 08/20 1230 Complete ETHANOL 08/20 1230 Complete COMPREHENSIVE METABOLIC PANEL 08/20 1230 Complete CBC WITHOUT DIFFERENTIAL 08/20 1230 Complete ED CRISIS PSYCH CONSULT 08/20 1230 Active Current Medications Sig/Levy Start time Last Medication Dose Stop Time Status Admin Aripiprazole 5 MG DAILY 08/21 0900 UNVr 08/21 (Abilify) 0834 Hydroxyzine HCl 25 MG TID PRN 08/21 0800 UNVr 08/21 (Atarax) 0850 Nicotine 4 MG DAILY PRN 08/21 0800 UNVr 08/21 (Nicotine) 0850 Laboratory Tests 08/20/17 1335: Urine Opiates Screen < 100, Methadone Screen < 40, Barbiturate Screen < 60, Ur Phencyclidine Scrn < 6.00, Amphetamines Screen < 100, U Benzodiazepines Scrn < 85, Urine Cocaine Screen < 50, Urine Cannabis Screen < 5.00, Urine Color YEL, Urine Clarity HAZY H, Urine pH 6.5, Ur Specific [place] <= 1.005, Urine Protein NEG, Urine Ketones NEG, Urine Nitrite NEG, Urine Bilirubin NEG, Urine Urobilinogen 0.2, Ur Leukocyte Esterase LARGE H, Ur Microscopic SEDIMENT EXAMINED, Urine RBC 1-3, Urine WBC > 75 H, Ur Epithelial Cells FEW, Urine Bacteria MANY H, Urine Hemoglobin MOD H, Urine Glucose NEG 08/20/17 1236: Anion Gap 10, Estimated GFR > 60, BUN/Creatinine Ratio 10.0, Glucose 104 H, Calcium 9.7, Total Bilirubin 0.4, AST 15, ALT 24, Alkaline Phosphatase 59, Total Protein 6.9, Albumin 3.9, Globulin 3.0, Albumin/Globulin Ratio 1.3, Total Beta HCG NEGATIVE, CBC w Diff NO MAN DIFF REQ, RBC 5.01, MCV 89.9, MCH 30.1, MCHC 33.5, RDW 13.7, MPV 7.8, Gran % 70.8, Lymphocytes % 22.4, Monocytes % 5.0, Eosinophils % 1.5, Basophils % 0.3, Absolute Granulocytes 8.0 H, Absolute Lymphocytes 2.5, Absolute Monocytes 0.6, Absolute Eosinophils 0.2, Absolute Basophils 0, Serum Alcohol < 10.0 Patient currently is tearful and has concerns of depression and suicide ideation crisis management evaluated patient states that she is pending a bed search for admission Discussed handoff with Dr. Fox in which patient is a bed search for admission Hand-Off Endorsed To: Shant Fox MD Pending: other (BED SEARCH) (Baron Sargent) Hand-Off Endorsed To: Cinthya BALDERRAMA,Hayedr Kauffman Endorsed Time: 0700 Pending: other (Shant Fox MD) Comments: 08/21/2017 7:32:44 AM patient signed out to me by Dr. Fox at shift change management. (Cinthya BALDERRAMA,Hayder Kauffman) Departure Departure Disposition: STILL A PATIENT Condition: Stable Referrals: Patient Has No Primary Care Dr (PCP/Family) Departure Forms: Customer Survey General Discharge Information (Baron Sargent) Departure Clinical Impression Primary Impression: Depression Qualifiers: Depression Type: unspecified Qualified Code: F32.9 - Major depressive disorder, single episode, unspecified Secondary Impressions: Suicide ideation (Cinthya BALDERRAMA,Hayder Kauffman) Critical Care Note Critical Care Note Critical Care Time: 30-74 min (Baron Sargent)
--- NOTE | 2017-08-20 17:31 | ED PSYCH CRISIS CONSULTATION ---
See Addendum Crisis Consult Basic Assessment Date of Consult: 08/20/17 Responsible Person/Accompanied By: self Insurance Authorization: Insurance #1: Insurance name: DONALD POOL Phone number: Policy number: [id number] Group number: Authorization number: ED Provider: Patient's ED Provider: Baron Sargent Primary Care Physician: Patient's PCP: Patient Has No Primary Care Dr PCP's Phone Number: Current Psychiatrist: Merly Burns APRN [phone] Chief Complaint: Psychiatric Related Complaint Patient's Quote: I don't want to but I don't want to live Present Illness: Pt is a 46 yo female presenting to [place] ED this afternoon with complaint of increased depression and SI. Pt had been residing at [facility] [place] since August 07 and reports actively seeking a [facility] residential program but keeps getting barriers and road blocks. Pt reports she has become more frustrated and hopeless and today made suicidal statements heard by staff. Pt reports she stated "I don't want to but I don't want to live". Pt reports fear that she would act on these thoughts. Pt rates her depression 11/05. Pt denies HI/AH/VH. Pt has a prior suicide attempt by pill o/d in 2017 resulting in a 3 day coma at [facility] and later being transfered to [facility] for inpatient psychiatric treatment. Pt was recently admitted to [facility] for SI and discharged August 02. Current homelessness and discord with longterm bf are major stressors on Pts mental health. Pt has recently begun treatment at [facility] and attends DBT group and meets with Merly Bailey APRN for medication management. Pt is prescribed Prozac, Abilify, atarax and Trazadone. Pt denies substance use and reports she has been sober from etoh past 7 yrs. Pt presents as calm, cooperative, sad and OX3. Case reviewed with Dr Calhoun. Recommendation for inpatient psychiatric treatment. Pt in agreement with plan and is aware she will need to be a bed search since there is no current bed availability on [facility]. Patient's Address: [address] [place] [address] [place] [address] Other Phone Number: Who Do You Live With? Other (see notes) (crisis and respite bdpt) Family/Informants Interviewed: collateral provided by pt friend (adria) Prince [phone]. He states he is hopeful pt will get the help and treatment she needs and will remain a support for her. Allergies - Coded Allergies: amoxicillin (Severe, THROAT CLOSES 04/28/17) clavulanic acid (From AUGMENTIN) (Severe, THROAT CLOSES 04/28/17) levofloxacin (From LEVAQUIN) (Severe, THROAT CLOSES 04/28/17) loracarbef (From LORABID) (Severe, THROAT CLOSES 04/28/17) penicillin G (Severe, THROAT CLOSES 04/28/17) Sulfa (Sulfonamide Antibiotics) (Intermediate, RASH 04/28/17) azithromycin (Intermediate, RASH 04/28/17) meperidine (From DEMEROL) (Intermediate, VOMIT 04/28/17) codeine (Intermediate, VOMIT 05/13/17) Current Medications - Scheduled Medications Aripiprazole (Abilify) 5 MG TABLET 5 MG PO DAILY mood #15 TAB Prescribed by Shaquille Calhoun MD on 08/02/17 Fesoterodine Fumarate (Toviaz) 8 MG TAB.ER.24H 1 TAB PO DAILY BLADDER ( Reported) Entered as Reported by Shane Cervantes on 08/20/17 1235 Fluoxetine HCl 40 MG CAPSULE 1 CAP PO DAILY depression #30 CAP Prescribed by Shaquille Calhoun MD on 08/02/17 Pregabalin (Lyrica) 150 MG CAPSULE 1 CAP PO BID Fibromyalgia #30 CAP Prescribed by Shaquille Calhoun MD on 08/02/17 Ranitidine HCl (Acid [place] Upholsterer) 150 MG TABLET 1 TAB PO DAILY GI (Reported) Entered as Reported by Shane Cervantes on 08/20/17 1234 Trazodone HCl 50 MG TABLET 1 TAB PO QPM SLEEP #15 (Reported) Entered as Reported by Staci Rothman on 06/01/17 2122 Umeclidinium [place] (Incruse Ellipta) 62.5 MCG/ACTUATION BLST.W.DEV 1 PUFF PO DAILY BREATHING PROBLEMS (Reported) Entered as Reported by Shane Cervantes on 08/20/17 1238 Varenicline Tartrate (Chantix) 1 MG TABLET 1 TAB PO BID SMOKING #56 TAB Prescribed by Shaquille Calhoun MD on 08/02/17 Scheduled PRN Medications Albuterol Sulfate (Proair Hfa) 90 MCG HFA.AER.AD 2 PUF INH Q4-6 PRN PRN SHORTNESS OF BREATH (Reported) Entered as Reported by Shane Cervantes on 08/20/17 1236 Hydroxyzine Hydrochloride (Atarax) 25 MG TAB 1 TAB PO TID PRN ANXIETY ( Reported) Entered as Reported by French Man on 07/31/17 1633 Nicotine Polacrilex (Nicotine Gum) 4 MG GUM 1 GUM PO DAILY PRN SMOKING ( Reported) Entered as Reported by Shane Cervantes on 08/20/17 1239 Laboratory Results: Laboratory Tests 08/20/17 1335: Urine Opiates Screen < 100, Methadone Screen < 40, Barbiturate Screen < 60, Ur Phencyclidine Scrn < 6.00, Amphetamines Screen < 100, U Benzodiazepines Scrn < 85, Urine Cocaine Screen < 50, Urine Cannabis Screen < 5.00, Urine Color YEL, Urine Clarity HAZY H, Urine pH 6.5, Ur Specific [place] <= 1.005, Urine Protein NEG, Urine Ketones NEG, Urine Nitrite NEG, Urine Bilirubin NEG, Urine Urobilinogen 0.2, Ur Leukocyte Esterase LARGE H, Ur Microscopic SEDIMENT EXAMINED, Urine RBC 1-3, Urine WBC > 75 H, Ur Epithelial Cells FEW, Urine Bacteria MANY H, Urine Hemoglobin MOD H, Urine Glucose NEG 08/20/17 1236: Anion Gap 10, Estimated GFR > 60, BUN/Creatinine Ratio 10.0, Glucose 104 H, Calcium 9.7, Total Bilirubin 0.4, AST 15, ALT 24, Alkaline Phosphatase 59, Total Protein 6.9, Albumin 3.9, Globulin 3.0, Albumin/Globulin Ratio 1.3, Total Beta HCG NEGATIVE, CBC w Diff NO MAN DIFF REQ, RBC 5.01, MCV 89.9, MCH 30.1, MCHC 33.5, RDW 13.7, MPV 7.8, Gran % 70.8, Lymphocytes % 22.4, Monocytes % 5.0, Eosinophils % 1.5, Basophils % 0.3, Absolute Granulocytes 8.0 H, Absolute Lymphocytes 2.5, Absolute Monocytes 0.6, Absolute Eosinophils 0.2, Absolute Basophils 0, Serum Alcohol < 10.0 Past History Past Medical History Neurological: NONE EENT: NONE Cardiovascular: NONE Respiratory: COPD Gastrointestinal: irritable bowel syndrome Hepatic: NONE Renal: NONE Musculoskeletal: fibromyalgia Psychiatric: anxiety, depression, PTSD Endocrine: NONE Blood Disorders: NONE Cancer(s): NONE BEAM SEALER/Reproductive: NONE Past Surgical History Surgical History: BLADDER SUSPENSION BLADDER SUSPENSION Psychosocial History Strengths/Capabilities: aware of need for treatment; sober past 7 years Physical Limitations (Interventions): none reported Psychiatric Treatment History Psych Treatment Psychiatric Treatment Yes Inpatient Treatment Yes Outpatient Treatment Yes Location of Treatment ; [facility]; [facility] Reason for Treatment depression/anxiety Dates of Treatment since 2016 Response to Treatment pt struggling with depression compounded by homelessness and relationship discord Diagnosis by History: Depression anxiety hx of etoh abuse Substance Use/Abuse History Drug Use/Abuse Substances Used/Abused Yes Substance Used/Abused Alcohol Last Used 7 yrs ago Substance Abuse Treatment Substance Abuse Treatment Past Substance Abuse [place] No Inpatient Treatment No Outpatient Treatment No Comments: pt denies substance use. Pt sober from etoh past 7 yrs. Current Mental Status Mental Status Orientation: Person, Place, Situation Affect: Depressed, Sad Speech: WNL Neuro-vegetative: Anhedonia, Appetite Decreased, Energy Decreased, Helpless, Sleep Disturbance Appearance Appearance- Dress/Hygiene: hospital scrubs; sitting up in bed bed; good eye contact; sad affect Behaviors Thought Process: WNL Thought Content: WNL Memory: WNL Insight: Fair SI/HI Risk Assessment Past Suicidal Ideation/Attempts Yes Current Suicidal Ideation/Att Yes Past Homicidal Ideation/Att: No Current Homicidal Ideation/Attempts No Degree of Intent: Thoughts/No Intent Danger To: Self Gravely Disabled: Poor Judgment Risk Factors: high anxiety/distress, history of suicide atmpts, SA/MH hospitalized, lack of outcome concern Lethality Ratin PTSD Checklist PTSD Done? patient declined ED Management Sitter: Yes Restraints: No DSM5/PS Stressors/Medical Prob Diagnosis' (DSM 5, Stressors, Medical): unspecified depression F32.9 homeless recent break with correction bf not with children Current GAF: 25 Comments: pt has been residing at [facility] in [place] past 2 weeks. Pt attempting to find [facility] residential programs and becoming hopeless and frustrated. Expressing SI. Departure Disposition Psych Medical Clearance Date: 08/20/17 Medically Cleared at: 1600 Time Started: 1600 Time Ended: 1645 Psychiatrist Consulted: Shaquille Calhoun MD Date Disposition Established: 08/20/17 Time Disposition Established: 1714 Plan for Disposition - Modality: Bed Search Rationale for Disposition: mood stabilization; medication assessment Referrals Patient Has No Primary Care Dr (PCP/Family)
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
[2017-08-21 15:33] VITALS: BP 130/85
[2017-08-21 15:46] VITALS: BP 109/68
--- NOTE | 2017-08-21 17:08 | PN- Att Addend ---
Attending Addendum Attending Brief Note Brief Re-admit Note - Patient Recently Discharged (had prior admit 07/31/17) S: The patient is a 46 yo female with h/o anxiety/depression, IBS, and asthma who presented with worsening depression and suicidal ideation requesting psych re-admit (had recent stay on [facility]). She currently denies and pulmonary or GI symptoms. Uses her inhalers regularly. O: VS: Vital Signs Date Time Temp Pulse Resp B/P B/P Pulse O2 O2 Flow FiO2 Mean Ox Delivery Rate 08/21 2000 97.7 73 116/70 08/21 1546 78 109/68 08/21 1533 98.3 82 130/85 Intake & Output 08/21 1600 Intake Total Output Total Balance Patient 180 lb Weight Current Medications Sig/Levy Start time Last Medication Dose Route Stop Time Status Admin Acetaminophen 650 MG Q4P PRN 08/21 1200 AC PO Albuterol Sulfate 2 PUF Q4 HRS NEEDED PRN 08/21 1715 AC INH Aripiprazole 5 MG DAILY 08/21 0900 AC 08/21 PO 0834 Fluoxetine HCl 40 MG DAILY 08/22 0900 AC PO Fluoxetine HCl 40 MG ONCE ONE 08/21 0800 DC 08/21 PO 08/21 0801 0834 Gabapentin 600 MG Q4P PRN 08/21 1200 AC PO Hydroxyzine HCl 0 .STK-MED ONE 08/21 0846 DC PO Hydroxyzine HCl 25 MG TID PRN 08/21 0800 AC 08/21 PO 2124 Ibuprofen 600 MG Q6P PRN 08/21 1200 AC PO Nicotine 4 MG DAILY PRN 08/21 0800 AC 08/21 PO 0850 Pregabalin 75 MG ONCE ONE 08/21 0800 DC 08/21 PO 08/21 0801 0834 Tiotropium [place]udo 1 PUF DAILY 08/21 1710 AC 08/21 INH 2125 Trazodone HCl 50 MG AT BEDTIME NEED.. 08/21 1200 AC 08/21 PO 2124 Physical Exam: HEENT: eyes- PERRLA, EOMI leigh ann- moist mucosa Neck: no adenopathy or thyroid abnormalities Chest: clear to A&P Cor: RRR nl S1, S2 w/o murm Abd: BS+, soft, NT, - HSM Ext: no edema, pulses 2+ Neuro: alert & oriented, non-focal exam, CN 2-12 intact Labs/Tests: Laboratory Tests 08/20/17 1335: Urine Opiates Screen < 100, Methadone Screen < 40, Barbiturate Screen < 60, Ur Phencyclidine Scrn < 6.00, Amphetamines Screen < 100, U Benzodiazepines Scrn < 85, Urine Cocaine Screen < 50, Urine Cannabis Screen < 5.00, Urine Color YEL, Urine Clarity HAZY H, Urine pH 6.5, Ur Specific [place] <= 1.005, Urine Protein NEG, Urine Ketones NEG, Urine Nitrite NEG, Urine Bilirubin NEG, Urine Urobilinogen 0.2, Ur Leukocyte Esterase LARGE H, Ur Microscopic SEDIMENT EXAMINED, Urine RBC 1-3, Urine WBC > 75 H, Ur Epithelial Cells FEW, Urine Bacteria MANY H, Urine Hemoglobin MOD H, Urine Glucose NEG 08/20/17 1236: Anion Gap 10, Estimated GFR > 60, BUN/Creatinine Ratio 10.0, Glucose 104 H, Calcium 9.7, Total Bilirubin 0.4, AST 15, ALT 24, Alkaline Phosphatase 59, Total Protein 6.9, Albumin 3.9, Globulin 3.0, Albumin/Globulin Ratio 1.3, Total Beta HCG NEGATIVE, CBC w Diff NO MAN DIFF REQ, RBC 5.01, MCV 89.9, MCH 30.1, MCHC 33.5, RDW 13.7, MPV 7.8, Gran % 70.8, Lymphocytes % 22.4, Monocytes % 5.0, Eosinophils % 1.5, Basophils % 0.3, Absolute Granulocytes 8.0 H, Absolute Lymphocytes 2.5, Absolute Monocytes 0.6, Absolute Eosinophils 0.2, Absolute Basophils 0, Serum Alcohol < 10.0 Impression/Plan: #Recurrent Major Depression with Suicidal Ideation- had been residing at [facility] in [place] since 08/07 discharge from [facility]. Plan: Re-admit to [facility]- treatment as per psychiatry. #H/O Asthma- lungs clear at present. Patient uses Incruse Ellipata as OP along with prn Albuterol. Plan: Will substitute Spiriva daily for Incruse and order prn Albuterol MDI. #H/O IBS- no abdominal symptoms. The patient does not take any medication at home. Plan: Will follow. #Pyuria- noted on admit- no urinary symptoms. Plan: Will repeat U/A and do C&S. Monitor for symptoms.
[2017-08-21 20:01] VITALS: BP 116/70
[2017-08-21] MEDS ORDERED: LYRICA75 M1 (22:28)
[2017-08-22 07:43] VITALS: BP 102/56
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
[2017-08-22 12:18] VITALS: BP 107/69
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
--- NOTE | 2017-08-22 15:30 | SOCIAL WORKER PROG NOTE PSYCH ---
Social Work Progress Note Progress Note This bid writer met with patient. Patient presented as depressed, guarded and with brief responses during the interview. She struggled to provide information on history or reasons leading to current admission and quickly transitioned to discharge planning. Patient stated that she would like to find a "exterminator program" that she can attend following discharge from [facility]. While patient identified several dual treatment programs, she stated that she has been sober for 7 years. Patient identified "[facility]" at [facility] as her number one choice. Patient stated that she had stayed with the [facility] snf in the past and would consider returning to their program. Patient identified homelessness as the trigger for her depression and stated that she has been homeless since March of 2017, with a total of 3 periods of homelessness. Patient reports feeling hopeless. She denied SI/HI/AH/VH.
[2017-08-22 16:17] VITALS: BP 122/67
[2017-08-22 19:54] VITALS: BP 100/64
[2017-08-23 07:34] VITALS: BP 102/59
[2017-08-23 12:14] VITALS: BP 98/60
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
[2017-08-23 15:56] VITALS: BP 114/60
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
[2017-08-23 20:11] VITALS: BP 121/76
[2017-08-24 07:30] VITALS: BP 100/61
[2017-08-24 12:15] VITALS: BP 103/67
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
--- NOTE | 2017-08-24 14:37 | PN- Att Addend ---
Attending Addendum Attending Brief Note The patient had some pyuria and urine culture is growing >100,000 E coli. Spoke with RN and the patient has no urinary symptoms. Elected to watch off antibiotics (asymptomatic bacteruria). If any symptoms develop will treat with Augmentin.
--- NOTE | 2017-08-24 15:25 | SOCIAL WORKER PROG NOTE PSYCH ---
Social Work Progress Note Progress Note The following was written by Ronak Greenberg, PARTS AND SERVICE MANAGER student: I Ronak Greenberg met with Candie to give her some extra support. She was engaged , cooperative and made eye contact. She is [facility] to get into [facility] [place] but mentioned that she also called [address] to look into shelters in case she is unable to go to [facility]. She will call 211 again near discharge. She mentioned she is supported by her cousin and they text often. To keep calm Candie enjoys coloring, and reading. She expressed that her medications make her tired. There was no reported anxiety about getting treatment and is motivated to receive treatment. I asked Candie if she could potentially stay with her cousin to which she stated no that is not an option.The option of staying with her brother is still being explored.
--- NOTE | 2017-08-24 15:33 | SOCIAL WORKER PROG NOTE PSYCH ---
Social Work Progress Note Progress Note [facility] concurrent auth entered: Determination Status: PENDED The services requested require additional review. You will be contacted regarding the status of this request if further information is needed. An authorization decision will be made within the required timeframes and details of that decision may be found under the member's authorization history. Member Name Member ID Member Subscriber Name Subscriber ID IGOR Samuels JENIFER [id number] 1970 IGOR MarinaShawn BURGESS [id number] Pended Authorization # Client Authorization # Type of Request [id number] CONCURRENT Date of Admission/ Start of Services Requested From Submission Date 08/21/2017 08/24/2017 08/24/2017 Level of Service Type of Service Level of Care Type of Care INPATIENT/[facility]
[2017-08-24 16:04] VITALS: BP 107/58
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
[2017-08-24 19:32] VITALS: BP 112/69
[2017-08-25 07:53] VITALS: BP 100/59
[2017-08-25 12:32] VITALS: BP 112/62
[2017-08-25 15:56] VITALS: BP 98/61
[2017-08-25 20:02] VITALS: BP 110/68
--- NOTE | 2017-08-26 07:33 | CP SOUTH PROGRESS NOTE PSYCH ---
Psych (Inpt) Progress Note Progress Note Chief Complaint Discussed overnight events with RN and staff. As per RN report, although the patient appeared to be sleeping throughout the night, No PRNs/restrains required in the last 24hrs. I saw the patient this morning with the treatment team. She reported feeling fine. She denies suicidal/homicidal thoughts/intent/plans at present. She has adequate appetite and sleep. She is compliant to medications, no side effects reported and none in evidence. She denies sxs of UTI. Vitals reviewed Vital Signs Result Date Time B/P 110/68 08/25 2001 Temp 97.9 08/25 2001 Pulse 79 08/25 2001 Pulse Ox 99 08/21 1357 Resp 16 08/21 1357 O2 Delivery Room Air 08/21 1204 Mental Status Examination Consciousness: Awake, alert Orientation: A&O x4, oriented to person, place, year, not to situation Appearance: appears stated age, dressed in casual attire, with poor hygiene Behavior: calm and cooperative Attitude: somewhat engaged Eye Contact: down gauzed Speech: slow, need prompting at times Mood: fine Affect: mood-congruent, constricted to depressed with minimal emotional reactivity Thought Process: organized with some thought blocking Thought Content: less depressed, lack of motivation, denies suicidal/homicidal ideations at the time of the interview, no delusions elicited/verbalized at present Perceptions: denies audiovisual hallucinations Attention: attentive to interview Memory: grossly intact Insight: fair Judgment: fair psychomotor retardation noted Motor: no abnormal movements, Gait WNL Neuro: grossly intact Independent in ADL's and iADL's Labs Reviewed as documented in chart. Allergy Reviewed as documented in chart. Medications Reviewed as documented in chart. Current Medications Sig/Levy Start time Last Medication Dose Route Stop Time Status Admin Acetaminophen 650 MG Q4P PRN 08/21 1200 AC PO Albuterol Sulfate 2 PUF Q4 HRS NEEDED PRN 08/21 1715 AC INH Aripiprazole 10 MG DAILY 08/23 09 AC 08/25 PO 0955 Chlorpromazine 50 MG Q4P PRN 08/22 1315 AC 08/25 PO 1750 Fluoxetine HCl 60 MG DAILY 08/24 0900 AC 08/25 PO 0955 Ibuprofen 600 MG Q6P PRN 08/21 1200 AC PO Nicotine 4 MG Q2 HRS NEEDED PRN 08/22 1315 AC 08/25 PO 1749 Nicotine 21 MG DAILY 08/22 1018 AC 08/25 TOP 0955 Nitrofurantoin 50 MG 0800,1200,1700,2100 08/23 1700 AC 08/25 PO 2125 Pregabalin 150 MG BID 08/21 2230 AC 08/25 PO 2125 Tiotropium Mcd[place] 1 PUF DAILY 08/21 1710 AC 08/25 INH 0956 Trazodone HCl 50 MG AT BEDTIME 08/23 2100 AC 08/25 PO 2125 Assessment Candie is a 46-year-old homeless white female who was admitted for worsening depression and suicidal ideation. She seems less depressed, denies sucidality at present, tolerating her medications regimen. She has asymptomatic in terms of UTI. Diagnosis Unspecified depression versus bipolar 2 versus disruptive mood dysregulation disorder Adjustment disorder with depressed mood Other specified personality disorder Treatment Plan Continue current medication regimen Disposition is pending to the [facility] program vs [facility] assessment with [facility].
[2017-08-26 08:03] VITALS: BP 121/73
[2017-08-26 11:50] VITALS: BP 110/59
[2017-08-26 15:40] VITALS: BP 119/73
--- NOTE | 2017-08-26 18:05 | CP SOUTH PROGRESS NOTE PSYCH ---
Psych (Inpt) Progress Note Progress Note Chief Complaint Discussed overnight events with RN and staff. No PRNs/restrains required in the last 24hrs. As per RN report, the patient appeared to be sleeping throughout the night, I saw the patient this morning with the treatment team. She reported feeling so so she reported feeling disappointed this morning after she called [address] and informed her that the only way to get into a residential is by going into an intake and be on the waiting list. She is preoccupied about the [facility] housing assistance. She is fearful to be homeless and stated it may be just be my car then Otherwise, she denies suicidal/homicidal ideations at present. She has adequate appetite and sleep. She is compliant to medications, no side effects reported and none in evidence. She is visible in the unit interacting with peers able to laugh with them and actively participating in groups. Vitals reviewed Vital Signs Result Date Time B/P 119/73 08/26 1540 Pulse 80 08/26 1540 Temp 98.0 08/26 0803 Pulse Ox 99 08/21 1357 Resp 16 08/21 1357 O2 Delivery Room Air 08/21 1204 Mental Status Examination Consciousness: Awake, alert Orientation: A&O x4, oriented to person, place, year, not to situation Appearance: appears stated age, dressed in casual attire, with poor hygiene Behavior: calm and cooperative Attitude: somewhat engaged Eye Contact: down gauzed Speech: slow, need prompting at times Mood: so so Affect: mood-congruent, brighter Thought Process: organized Thought Content: less anxious/depressed, denies suicidal/homicidal ideations at the time of the interview, no delusions elicited/verbalized at present Perceptions: denies audiovisual hallucinations Attention: attentive to interview Memory: grossly intact Insight: fair Judgment: fair No Psychomotor abnormalities Motor: no abnormal movements Neuro: grossly intact Independent in ADL's and iADL's Labs Reviewed as documented in chart. Allergy Reviewed as documented in chart. Medications Reviewed as documented in chart. Current Medications Sig/Levy Start time Last Medication Dose Route Stop Time Status Admin Acetaminophen 650 MG Q4P PRN 08/21 1200 AC PO Albuterol Sulfate 2 PUF Q4 HRS NEEDED PRN 08/21 1715 AC INH Aripiprazole 10 MG DAILY 08/23 0900 AC 08/26 PO 0854 Chlorpromazine 50 MG Q4P PRN 08/22 1315 AC 08/26 PO 0934 Fluoxetine HCl 60 MG DAILY 08/24 0900 AC 08/26 PO 0853 Ibuprofen 600 MG Q6P PRN 08/21 1200 AC PO Nicotine 4 MG Q2 HRS NEEDED PRN 08/22 1315 AC 08/26 PO 1758 Nicotine 21 MG DAILY 08/22 1018 AC 08/26 TOP 0854 Nitrofurantoin 50 MG 0800,1200,1700,2100 08/23 1700 AC 08/26 PO 1655 Pregabalin 150 MG BID 08/21 2230 AC 08/26 PO 0855 Tiotropium [place] 1 PUF DAILY 08/21 1710 AC 08/26 INH 0856 Trazodone HCl 50 MG AT BEDTIME 08/23 2100 AC 08/25 PO 2125 Assessment Candie is a 46-year-old homeless white female who was admitted for worsening depression and suicidal ideation. She seems less depressed, denies sucidality at present, tolerating her medications regimen. She has asymptomatic in terms of UTI. Diagnosis Unspecified depression versus bipolar 2 versus disruptive mood dysregulation disorder Adjustment disorder with depressed mood Other specified personality disorder Treatment Plan Continue current medication regimen Disposition is pending to the [facility] housing program vs housing assessment with [facility].
[2017-08-26 20:11] VITALS: BP 120/67
[2017-08-27 07:50] VITALS: BP 110/70
[2017-08-27 12:10] VITALS: BP 110/68
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
[2017-08-27 15:43] VITALS: BP 129/57
--- NOTE | 2017-08-27 18:31 | SOCIAL WORKER PROG NOTE PSYCH ---
Social Work Progress Note Progress Note This technical writer and editor met with patient. At her request, we called [facility] ) and [facility] together. She stated that she spoke with [address] regarding the [facility] assessment and she was informed that these could be completed by phone "because of my situation" if this technical writer and editor calls them. A vm was left for Angel Glynn at 1:21pm. The number called for [facility] did not answer. Patient and this technical writer and editor also called [facility] and vm were left for [facility] ([phone]), [facility] (spoke with Lydia Sylvester who referred us to [facility]: [phone]). Patient was provided with the list ( from [facility]) and will continue to call. Finally, patient signed ANN's for [facility] for the [place] and [place] location. The clinical and referral form was faxed to both location. Patient stated that she had tried to reach her brother to inquire about staying with him temporarily. A vm was left for him (Solomon [phone]) at 1:49pm with this technical writer and editor's call back number. She asked on this vm if she would be able to stay with him temporarily. Patient was informed that this technical writer and editor had not received a response from [facility]. Patient described her mood as "alright" and denied SI/HI/AH/VH. She described her anxiety at a 6/10.
[2017-08-27 19:45] VITALS: BP 123/60
[2017-08-28 07:36] VITALS: BP 99/52
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
[2017-08-28] MEDS ORDERED: CHLORPROMAZINE50 M2 PO (10:16)
[2017-08-28] MEDS ORDERED: TRAZODONE HCL50 M1 PO (10:16)
[2017-08-28] MEDS ORDERED: ABILIFY10 M1 PO (10:16)
[2017-08-28] MEDS ORDERED: NICOTINE PATCH1 EAC3 TOP (10:16)
--- NOTE | 2017-08-28 11:55 | Patient Discharge Instructions ---
Psych Discharge Inst General Discharge Information Reason for Admission: wishing Psy Discharge Primary Diag+ unspecified Bipolar Summary Tests/Major Procedures Lab Cholesterol 202 MG/DL H 08/02/17 0637 Cholesterol/HDL Ratio 5.3 % H 08/02/17 0637 HDL Cholesterol 38 mg/dL L 08/02/17 0637 Hemoglobin A1c 5.5 % 08/02/17 0637 LDL Cholesterol, Calc 145 MG/DL H 08/02/17 0637 Total Beta HCG NEGATIVE 08/20/17 1236 Triglycerides 98 mg/dL 08/02/17 0637 Studies Pending at DC: None Patient Instructions Contact Information Your Psychiatrist on [facility] was Unique BALDERRAMA,Shaquille * If you are experiencing an emergency related to this hospitalization, please call [phone] to contact the treating psychiatrist or the psychiatrist-on- call. * To Request a copy of your medical records, please contact the Medical Records Department at [phone]. * To request results of studies pending at the time of discharge, please call [phone]. * Continue your Medications until directed to stop by your Healthcare provider. General Medication Information Please continue to take your new medications and your continued home medications , unless otherwise indicated on your discharge medication list, or unless directed by your MD or DIRECTOR OF INSTITUTIONAL RESEARCH to stop them. Special Instructions Diet Regular Activity Normal - Tobacco Use Treatment Offered Post DC Medications Offered: Script Given-See Med List Post DC Tobacco Treatment Plan: Refused Tobacco Tx Pgm - EtOH/Drug Use D/O Treatment Offered Post DC Medications Offered: NA-No EtOH/Drug Use D/O Post DC EtOH/SubAbuse TX Plan: NA-No EtOH/Drug Use D/O Metabolic Screening Patient on a neuroleptic(s) . Enter below results for Hemoglobin A1C, and lipid panel if obtained during the last 365 days. BMI: 29.000 Blood Pressure: 117/69 Laboratory Results From [facility] (If applicable): Lab Cholesterol 202 MG/DL H 08/02/17 0637 Cholesterol/HDL Ratio 5.3 % H 08/02/17 0637 HDL Cholesterol 38 mg/dL L 08/02/17 0637 Hemoglobin A1c 5.5 % 08/02/17 0637 LDL Cholesterol, Calc 145 MG/DL H 08/02/17 0637 Total Beta HCG NEGATIVE 08/20/17 1236 Triglycerides 98 mg/dL 08/02/17 0637 Advance Directives Does the Patient have Medical Advance Directives No/Refused further info Does Pt have Psychiatric Advance Directives? No/Refused further info Does Patient have a Designated Surrogate Decision Maker: No Information About Psychiatric Advance Directives Provided? Refused Discharge Plan Post Hospital Treatment Plan: [facility] Maldonado
[2017-08-28 12:13] VITALS: BP 117/69
[2017-08-28] MEDS ORDERED: PROZAC20 M2 PO (12:37)
[2017-08-28 15:50] VITALS: BP 117/64
--- NOTE | 2017-08-28 16:55 | SOCIAL WORKER PROG NOTE PSYCH ---
Social Work Progress Note Progress Note This narrative writer spoke with Kristin at [facility] [place] location and Emperatriz at [facility] [place] location. They confirmed receipt of referral. Neither location had any avaialble beds nor did they have a staff member that could complete a screening today. Patient was informed. This narrative writer and patient called [facility] [place] a recovery [facility] in [place] ([phone]) at 10:30am today and spoke with Liza and Yue. Yue confirmed that they have an available bed today and requested the patient's demographics and insurance page as well as her social. This was faxed at 11:33am at [phone]. Patient expressed feeling hopeful about this Recovery House and IOP programs will be explored. Patient denied SI/HI/AH/VH. This narrative writer received a call from Staci at [facility] in response to yesterday's message. She stated that the patient would need to complete an *in person* CAN assessment and that it cannot be done over the phone. Patient was informed. 3pm: Dr. Calhoun called [facility] [place] who stated that the patient could come to their program tonight by 4pm, but later agreed to 4:30pm in order to allow for the discharge process to occur. This narrative writer called back to inquire about whether patient could bring her car to the house. Yue took this call and stated that the patient would be unable to come tonight as they were unaware that they were closing early for the holiday (08/29/17 tomorrow) and requested that the patient come on at 10:30am. This narrative writer spoke with Sara Friedman as patient was interested in the [facility]. A referral was conducted and patient is able to schedule an intake (date and time currently pending). Due to questions that the patient had, she and this narrative writer called [facility] [place] and spoke with the clinician at their program ([facility]). He stated that the patient would be covered for up to 60 days under Basic Needs if the patient does not have [place]. Patient reports that she has S[place] and she would therefore be required to pay out of pocket. Patient is unable to do so. stated that she would therefore not be accepted into their program. Had the patient arrived tonight, she would not have been admitted. Per patient inquiry, scholarships are not offered. This narrative writer provided support to the patient following the phone call. Patient decided that she would continue to call other Recovery Houses tonight and tomorrow to explore other options, including cost. [facility] will be contacted on 08/30/17 to follow up on the referral. Outpatient treatment (IOP) will be identified once the patient's living arrangements are detemrined. This could include IOP.
--- NOTE | 2017-08-28 17:35 | SOCIAL WORKER PROG NOTE PSYCH ---
Social Work Progress Note Progress Note Provider Connect Home ProviderConnect Home Determination Status: PENDED The services requested require additional review. You will be contacted regarding the status of this request if further information is needed. An authorization decision will be made within the required timeframes and details of that decision may be found under the member's authorization history. Member Name Member ID Member Subscriber Name Subscriber ID IGOR BURGESS [id number] 1970 IGOR BURGESS [id number] Pended Authorization # Client Authorization # Type of Request [id number] CONCURRENT Date of Admission/ Start of Services Requested From Submission Date 08/21/2017 08/28/2017 08/28/2017 Level of Service Type of Service Level of Care Type of Care INPATIENT/HLOC MENTAL HEALTH INPATIENT INPATIENT HOSPITAL - INPATIENT HOSPITAL Reason Code P76 Provider Name & Address Provider ID Provider Alternate ID NPI # for Authorization APURVA RISHABH [address] [place] [id number] N/A Message P76 Attached Documents There are no documents attached with this Authorization Request Document Title Document Description Authorization Printing & Downloading Options: (For the best print results, please print in 'Landscape' format) Print the Results page (this page) Print the entire Authorization Request Download the entire Authorization Request Return to the [facility] homepage
[2017-08-28 20:06] VITALS: BP 116/72
[2017-08-29 07:33] VITALS: BP 107/63
[2017-08-29 11:50] VITALS: BP 110/64
--- NOTE | 2017-08-29 12:39 | CP SOUTH PROGRESS NOTE PSYCH ---
Psych (Inpt) Progress Note Progress Note Include the following elements, when applicable: Involvement in the active treatment of the patient with behavioral observations of the patient and the patient's response to the treatment. Review of the ongoing treatment process in the context of the treatment plan. Indication of how multi-disciplinary staff members are carrying out the treatment plan. Plans for future interventions and recommendations for revision of the treatment plan. Liaison with other physicians/providers. Progress Note: Pleasant but not fully engaged, states that she is making as many phone calls as she can in order to secure housing and substance use program. She stated that if she cannot find a place by Sunday she will live in her car discussed that due to the heat and safety risk, not a viable plan. Stated that she is making phone calls to the shelters and working with her SW. Her mood is neutral, she is future oriented and optimistic despite her numerous risk factors. No clinical changes. MSE: middle aged woman, calm, good eye contact. Adequate grooming and hygiene. Speech is regular volume and rate. Mood is neutral and affect is constricted but reactive. Her thinking is logical and goal directed. She has no delusional thinking and no disorganization of thought. She denies any current depressive thoughts or thoughts to harm herself or anyone else. There are no hallucinations. Her insight and judgment are good, and cognition appears grossly intact. 46 year old woman with a history of worsening depression and suicidal thinking, in context of homelessness, history of drug/alcohol use and overall poor social support. She has been improving clinically and is working toward discharge planning. Continue current plan of care.
[2017-08-29 15:44] VITALS: BP 100/55
[2017-08-29 20:09] VITALS: BP 100/60
[2017-08-30 07:49] VITALS: BP 136/74
--- NOTE | 2017-08-30 08:42 | CP SOUTH PROGRESS NOTE PSYCH ---
Psych (Inpt) Progress Note Progress Note Vital Signs Date Time Temp Pulse B/P B/P Pulse O2 O2 Flow 08/30 1208 72 103/59 08/30 748 97.4 80 136/74 08/29 2008 97.0 82 100/60 Mental Status Examination: She reported that her mood is "good" denied wishing , and denied thinking of suicide today. alert and oriented to time, place, and person. She seemed to be in good spirits today. She was calm and cooperative pt. showed normal psychomotor activity. She did not show any abnormalities in her speech (not pressured, not slurred, etc.). Patient denied homicidal ideation, denied hallucinations, denied feeling paranoid, there were no delusions during the interview. Patient was coherent, there was no thought disorder. Assessment: Candie Edmondson is a 46-year-old Single White Female who was admitted to the inpatient psychiatric unit at [facility] on 08/21/2017 because of increasing depression and thoughts of suicide. Since her admission on 08/21/2017, Candie has shown significant improvement in her mood and has been denying thoughts of suicide since 08/23/2017. Diagnoses: Unspecified Depressive Disorder vs. Bipolar II vs. disruptive mood dysregulation disorder Adjustment disorder with depressed mood Other specified personality disorder Treatment Plan Update: Awaiting placement
[2017-08-30 12:08] VITALS: BP 103/59
[2017-08-30 15:46] VITALS: BP 114/59
--- NOTE | 2017-08-30 17:56 | SOCIAL WORKER PROG NOTE PSYCH ---
Social Work Progress Note Progress Note 8:58am: This quality analyst/technical writer spoke with Myah at [facility] and [facility] in interest of following up on this referral. No one was available at that time and this quality analyst/technical writer was requested to call back. 10:20am: This quality analyst/technical writer spoke patrick Huerta at [facility]. She confirmed receipt of the referral, however, did not have any beds. She was provided with information regarding this patient, however, stated that a CAN assessment is not considered a discharge plan. She encouraged a call back should another discharge plan become available. This quality analyst/technical writer met with patient. She was informed of the calls to crisis and respite. She will continue to explore Recovery Houses and stated that she has left multiple messages. Patient denied SI/HI/AH/VH. 2:30pm: Spoke with Rosalina at [facility] in [place]. She confirmed receipt of the referral and stated, as did Deanna, that a CAN assessment is not considered a discharge plan. She encouraged a call back should another discharge plan arise. She suggested [facility] or [facility]. This was relayed to Fernandez Baeza, who will be covering in this quality analyst/technical writer's absence.
[2017-08-30 20:15] VITALS: BP 107/62
[2017-08-31 07:49] VITALS: BP 105/69
[2017-08-31 12:09] VITALS: BP 104/61
--- NOTE | 2017-08-31 14:06 | CP SOUTH PROGRESS NOTE PSYCH ---
Psych (Inpt) Progress Note Progress Note Vital Signs Date Time Temp Pulse B/P B/P Pulse O2 O2 Flow FiO2 08/31 1209 69 104/61 08/31 0749 97.2 93 105/69 08/30 2014 97.9 79 107/62 08/30 1546 88 114/59 Mental Status Examination: mood is "good", seemed to be in good spirits denied wishing , and denied thinking of suicide alert and oriented to time, place, and person calm and cooperative pt. showed normal psychomotor activity normal speech denied homicidal ideation, denied hallucinations, denied feeling paranoid, there were no delusions during the interview. coherent, there was no thought disorder. Assessment: Candie Edmondson is a 46-year-old Single White Female who was admitted because of increasing depression and thoughts of suicide. Since her admission on 08/21/2017, Candie has shown significant improvement in her mood and has been denying thoughts of suicide since 08/23/2017. Diagnoses: Unspecified Depressive Disorder vs. Bipolar II vs. disruptive mood dysregulation disorder Adjustment disorder with depressed mood Other specified personality disorder Treatment Plan Update: Continue same medications Awaiting placement
[2017-08-31 15:40] VITALS: BP 118/60
--- NOTE | 2017-08-31 15:59 | SOCIAL WORKER PROG NOTE PSYCH ---
Social Work Progress Note Progress Note Member Name Member ID Member Subscriber Name Subscriber ID IGOR BURGESS [id number] 1970 IGOR BURGESS [id number] Pended Authorization # Client Authorization # Type of Request [id number] CONCURRENT Date of Admission/ Start of Services Requested From Submission Date 08/21/2017 08/31/2017 08/31/2017 Level of Service Type of Service Level of Care Type of Care INPATIENT/HLOC Mental Health Inpatient Inpatient Hospital - Inpatient Hospital Reason Code P76 Provider Name & Address Provider ID Provider Alternate ID NPI # for Authorization CHELSEA FRASER [address] [place] [id number] N/A
--- NOTE | 2017-08-31 18:16 | SOCIAL WORKER PROG NOTE PSYCH ---
Social Work Progress Note Progress Note Pt appears to be motivated and participated in making contact with referral sources for discharge plannin. Pt had one phone interview today with [facility] with Fuentes Sorto for the Supportive Housing Apprenticship Program . Ther is a program fee. They provide housing for 1-2 years and it is based on her income. Pt also spoke to Alem from [place] who informed the pt that she will have to place her on a waitlist, but will have a difficult time getting into sober houses because she receives [employer] rodrig[employer] benefits. Pt presented some worried thoughts during the 1:1. She became teary and emotional saying she doesn't want to be placed just anywhere, "I don't want to put all my eggs in one basket" So she is now requesting to [facility] believes they have a waitlist too and that she was told they have a turn of approximately 2 weeks. Pt seems to be unsure of what she wants to do, but she is saying she would like to attend the [facility] as well.
[2017-08-31 19:59] VITALS: BP 128/74
[2017-09-01 07:56] VITALS: BP 103/62
--- NOTE | 2017-09-01 09:57 | CP SOUTH PROGRESS NOTE PSYCH ---
Psych (Inpt) Progress Note Progress Note Vital Signs Date Time Temp Pulse B/P B/P Pulse O2 O2 Flow FiO2 09/01 1221 78 112/69 09/01 0756 97.6 88 103/62 08/31 1959 97.9 92 128/74 08/31 1540 80 118/60 Mental Status Examination: Candie reports mood is "good", seemed to be in good spirits denied wishing , and denied thinking of suicide alert and oriented to time, place, and person Candie was calm and cooperative, showed normal psychomotor activity normal speech denied homicidal ideation, denied hallucinations, denied feeling paranoid, there were no delusions during the interview. Candie was coherent, there was no thought disorder. Assessment: Candie Edmondson is a 46-year-old Single White Female who was admitted because of voicing thoughts of suicide. Since her admission on 08/21/2017, Candie has shown significant improvement in her mood and has been denying thoughts of suicide since 08/23/2017. Diagnoses: Unspecified Depressive Disorder vs. Bipolar II vs. disruptive mood dysregulation disorder Adjustment disorder with depressed mood Other specified personality disorder Treatment Plan Update: Continue same medications Awaiting placement
[2017-09-01 12:21] VITALS: BP 112/69
[2017-09-01 15:47] VITALS: BP 118/63
[2017-09-01 19:13] VITALS: BP 101/55
[2017-09-02 07:34] VITALS: BP 119/59
--- NOTE | 2017-09-02 08:19 | CP SOUTH PROGRESS NOTE PSYCH ---
Psych (Inpt) Progress Note Progress Note Vital Signs Date Time Temp Pulse Resp B/P B/P Pulse O2 O2 Flow FiO2 09/02 1157 71 114/74 09/02 0734 97.9 79 119/59 09/01 1913 98.0 88 101/55 09/01 1547 80 118/63 09/01 1221 78 112/69 Mental Status Examination: Candie reports that mood is "good" and her affect matched that statement. She denied feeling hopeless, denied wishing , and denied thinking of suicide She was alert and oriented to time, place, and person Candie was calm and cooperative, showed normal psychomotor activity, and normal speech denied homicidal ideation, denied hallucinations, denied feeling paranoid, there were no delusions during the interview. Candie was coherent, there was no thought disorder. Assessment: Candie Edmondson is a 46-year-old Single White Female who was admitted because of voicing thoughts of suicide. Since her admission on 08/21/2017, Candie has shown significant improvement in her mood and has been denying thoughts of suicide since 08/23/2017. She has been awaiting placement for a while. Diagnoses: Unspecified Depressive Disorder vs. Bipolar II vs. disruptive mood dysregulation disorder Adjustment disorder with depressed mood Other specified personality disorder Treatment Plan Update: Continue same medications Awaiting placement
[2017-09-02 11:57] VITALS: BP 114/74
[2017-09-02 15:55] VITALS: BP 121/70
[2017-09-02 19:34] VITALS: BP 104/62
[2017-09-03 07:56] VITALS: BP 99/56
--- NOTE | 2017-09-03 08:52 | CP SOUTH PROGRESS NOTE PSYCH ---
Psych (Inpt) Progress Note Progress Note Vital Signs Date Time Temp Pulse B/P B/P Pulse O2 FiO2 09/03 0756 97.6 79 99/56 09/02 1934 97.5 73 104/62 09/02 1555 73 121/70 Mental Status Examination: Candie was alert and oriented to time, place, and person. She reports that mood is "good" and her affect was bright. She denied feeling hopeless, denied wishing , and denied thinking of suicide. She was calm and cooperative, showed normal psychomotor activity, and normal speech. She denied homicidal ideation, denied hallucinations, denied feeling paranoid, there were no delusions during the interview. Candie was coherent, there was no thought disorder. Assessment: Since her admission on 08/21/2017, Candie has shown significant improvement in her mood and has been denying thoughts of suicide since 08/23/2017. She has been awaiting placement for a while. Diagnoses: Unspecified Depressive Disorder vs. Bipolar II vs. disruptive mood dysregulation disorder Adjustment disorder with depressed mood Other specified personality disorder Treatment Plan Update: Continue same medications Awaiting placement Adjustment disorder with depressed mood Other specified personality disorder Treatment Plan Update: Continue same medications Awaiting placement
[2017-09-03 12:11] VITALS: BP 129/71
[2017-09-03 16:20] VITALS: BP 116/67
--- NOTE | 2017-09-03 18:53 | SOCIAL WORKER PROG NOTE PSYCH ---
Social Work Progress Note Progress Note Pt was very emotional and concerned that she would be discharged to her car during our meeting. Dr. Calhoun and this clinician contacted [facility] as a follow up to a phone interview the pt had on 08/31/17. The link trainer maintenance worker Shawn Cory Sorto stated that he photographic laboratory supervisor will be back tomorrow 09/04/17 and they will make a final decision and contact Huy on 09/04/17. She informed me that the pt must be willing to work because the program they have is an apprentiship program. Pt denies SI/HI, AH/VH.
[2017-09-03 20:01] VITALS: BP 109/71
[2017-09-04 07:50] VITALS: BP 106/62
--- NOTE | 2017-09-04 08:57 | CP SOUTH PROGRESS NOTE PSYCH ---
Psych (Inpt) Progress Note Progress Note Treatment team (JUDY, RN, Group and Activities Therapist, and psychiatrist) discussed Pt.'s progress, treatment plan, and aftercare plans. Vital Signs Date Time Temp Pulse Resp B/P B/P Pulse O2 O2 Flow FiO2 Mean Ox Delivery Rate 09/04 1234 88 96/63 09/04 0750 97.2 96 106/62 07/2000 97.0 84 109/71 No new labs Mental Status Examination: Candie's affect seemed to have taken a turn down and she acknowledged that she is feeling frustrated and tired of being stuck at the hospital shewas alert and oriented to time, place, and person. She denied feeling hopeless, denied wishing , and denied thinking of suicide. She was calm and cooperative, showed normal psychomotor activity, and normal speech. She denied homicidal ideation, denied hallucinations, denied feeling paranoid, there were no delusions during the interview. Candie was coherent, there was no thought disorder. Assessment: Since her admission on 08/21/2017, Candie has shown significant improvement in her mood and has been denying thoughts of suicide since 08/23/2017. She has been awaiting placement for a while. Diagnoses: Unspecified Depressive Disorder vs. Bipolar II vs. disruptive mood dysregulation disorder Adjustment disorder with depressed mood Other specified personality disorder Treatment Plan Update: Continue same medications Awaiting placement
[2017-09-04 12:34] VITALS: BP 96/63
--- NOTE | 2017-09-04 12:48 | Patient Discharge Instructions ---
Psych Discharge Inst General Discharge Information Reason for Admission: wishing Psy Discharge Primary Diag+ unspecified Bipolar Summary Tests/Major Procedures Lab Cholesterol 202 MG/DL H 08/02/17 0637 Cholesterol/HDL Ratio 5.3 % H 08/02/17 0637 HDL Cholesterol 38 mg/dL L 08/02/17 0637 Hemoglobin A1c 5.5 % 08/02/17 0637 LDL Cholesterol, Calc 145 MG/DL H 08/02/17 0637 Total Beta HCG NEGATIVE 08/20/17 1236 Triglycerides 98 mg/dL 08/02/17 0637 Studies Pending at DC: None Patient Instructions Contact Information Your Psychiatrist on [facility] was Unique BALDERRAMA,Shaquille * If you are experiencing an emergency related to this hospitalization, please call [phone] to contact the treating psychiatrist or the psychiatrist-on- call. * To Request a copy of your medical records, please contact the Medical Records Department at [phone]. * To request results of studies pending at the time of discharge, please call [phone]. * Continue your Medications until directed to stop by your Healthcare provider. General Medication Information Please continue to take your new medications and your continued home medications , unless otherwise indicated on your discharge medication list, or unless directed by your MD or LIFE ENRICHMENT SPECIALIST to stop them. Special Instructions Diet Regular Activity Normal - Tobacco Use Treatment Offered Post DC Medications Offered: Script Given-See Med List Post DC Tobacco Treatment Plan: Refused Tobacco Tx Pgm - EtOH/Drug Use D/O Treatment Offered Post DC Medications Offered: NA-No EtOH/Drug Use D/O Post DC EtOH/SubAbuse [place] Plan: NA-No EtOH/Drug Use D/O Advance Directives Does the Patient have Medical Advance Directives No/Refused further info Does Pt have Psychiatric Advance Directives? No/Refused further info Does Patient have a Designated Surrogate Decision Maker: No Information About Psychiatric Advance Directives Provided? Refused Discharge Plan Post Hospital Treatment Plan: [facility], [place]
--- NOTE | 2017-09-04 14:34 | SOCIAL WORKER PROG NOTE PSYCH ---
Social Work Progress Note Progress Note Pt was told that another person had taken the bed at [facility], and that in order for her to be considered for another program it would be fee based, and she declined. Pt tearful, " Can I be discharged to my car please?". Will make referrals to crisis and resp[facility], CAN assessment and perception house tomorrow, once pt has re-grouped and is available to make a reasonable decison.
--- NOTE | 2017-09-04 16:12 | SOCIAL WORKER PROG NOTE PSYCH ---
Social Work Progress Note Progress Note Determination Status: PENDED The services requested require additional review. You will be contacted regarding the status of this request if further information is needed. An authorization decision will be made within the required timeframes and details of that decision may be found under the member's authorization history. Member Name Member ID Member Subscriber Name Subscriber ID IGOR BURGESS [id number] 1970 IGOR BURGESS [id number] Pended Authorization # Client Authorization # Type of Request [id number] CONCURRENT Date of Admission/ Start of Services Requested From Submission Date 08/21/2017 09/04/2017 09/04/2017 Level of Service Type of Service Level of Care Type of Care INPATIENT/HLOC MENTAL HEALTH INPATIENT INPATIENT HOSPITAL - INPATIENT HOSPITAL Reason Code P76 Provider Name & Address Provider ID Provider Alternate ID NPI # for Authorization APURVA KEATING [address] [place] [id number] N/A Message P76 Attached Documents There are no documents attached with this Authorization Request Document Title Document Description Authorization Printing & Downloading Options: (For the best print results, please print in 'Landscape' format)
[2017-09-04 20:21] VITALS: BP 97/58
[2017-09-05 07:57] VITALS: BP 112/75
--- NOTE | 2017-09-05 12:07 | SOCIAL WORKER PROG NOTE PSYCH ---
Social Work Progress Note Progress Note Pt has a CAN assessment 09/11/17. Pt will explore other housing options. Pt is upset, denies si/hi/ah/vh.
[2017-09-05 12:28] VITALS: BP 114/64
--- NOTE | 2017-09-05 12:31 | SOCIAL WORKER PROG NOTE PSYCH ---
Social Work Progress Note Progress Note TC - Holli at [facility] - left to call Lamar back regarding bed availability. Pt ready to d/c. Informed her that Pt. is obtaining a CAN Assessment appoitment with [facility]. Patient wants to go to [facility]. Refaxed [facility] referral with clinical. Saw in chart another referral/clinical was sent 08/27/17 (after 2nd one sent.) Candie wanted to know status of [facility] and stated Lamar was waiting for an email from t. Kendrick. INformed Lamar of this.
--- NOTE | 2017-09-05 13:43 | CP SOUTH PROGRESS NOTE PSYCH ---
Psych (Inpt) Progress Note Progress Note Treatment team (JUDY, RN, Group and Activities Therapist, and psychiatrist) discussed Pt.'s progress, treatment plan, and aftercare plans. Vital Signs: Date Time Temp Pulse B/P B/P Pulse O2 FiO2 09/05 1228 83 114/64 09/05 0757 98.4 99 112/75 09/04 2020 97.9 93 97/58 No new labs Mental Status Examination: affect seemed down she is feeling frustrated, depressed, and tired of being on the unit She denied feeling hopeless, denied wishing , and denied thinking of suicide. She was calm and cooperative, showed normal psychomotor activity, and normal speech. She denied homicidal ideation, denied hallucinations, denied feeling paranoid, there were no delusions during the interview. Candie was coherent, there was no thought disorder. alert and oriented to time, place, and person. Assessment: admitted to [facility] on 08/21/2017 denying thoughts of suicide since 08/23/2017. improvement in her mood and has been awaiting placement for a while. Diagnoses: Unspecified Depressive Disorder vs. Bipolar II vs. disruptive mood dysregulation disorder Adjustment disorder with depressed mood Other specified personality disorder Treatment Plan Update: Continue same medications Awaiting placement
[2017-09-05 16:00] VITALS: BP 107/64
[2017-09-05 19:57] VITALS: BP 103/58
--- NOTE | 2017-09-06 07:22 | CP SOUTH PROGRESS NOTE PSYCH ---
Psych (Inpt) Progress Note Progress Note Treatment team (JUDY, RN, Group and Activities Therapist, and psychiatrist) discussed Pt.'s progress, treatment plan, and aftercare plans. Vital Signs Date Time Temp Pulse B/P B/P Pulse O2 O2 Flow FiO2 09/06 1202 70 108/61 09/06 0742 98.0 98 105/61 09/05 1957 98.4 87 103/58 09/05 1600 86 107/64 No new labs Mental Status Examination: Pt. reported feeling frustrated, discouraged/depressed, and tired of being on the unit Her affect seemed down, denied wishing , and denied thinking of suicide. She was calm and cooperative, showed normal psychomotor activity, and normal speech. She denied homicidal ideation, denied hallucinations, denied feeling paranoid, there were no delusions during the interview. Candie was coherent, there was no thought disorder. alert and oriented to time, place, and person. Assessment: 46-year-old single White Female admitted to [facility] on 08/21/2017 denying thoughts of suicide since 08/23/2017. awaiting placement Diagnoses: Unspecified Depressive Disorder vs. Bipolar II vs. disruptive mood dysregulation disorder Adjustment disorder with depressed mood Other specified personality disorder Treatment Plan Update: Continue same medications Awaiting placement
[2017-09-06 07:42] VITALS: BP 105/61
[2017-09-06 12:02] VITALS: BP 108/61
--- NOTE | 2017-09-06 14:19 | SOCIAL WORKER PROG NOTE PSYCH ---
Social Work Progress Note Progress Note Left a message with [facility] to find out if she has moved up on the waitlist, sent an email to [facility] regarding open beds, pt is hopeless at this point denies si/hi/ah/vh. She states she is waiting for her income to kick in i.e. ssi disability and then will have the means to look for an apt. She maybe able to go back to crisis and respite referral made just needs to do screening if not today, follow up Sunday.
[2017-09-06 16:19] VITALS: BP 109/76
[2017-09-06 19:49] VITALS: BP 120/60
--- NOTE | 2017-09-07 07:50 | CP SOUTH PROGRESS NOTE PSYCH ---
Psych (Inpt) Progress Note Progress Note Treatment team (JUDY, RN, Group and Activities Therapist, and psychiatrist) discussed Pt.'s progress, treatment plan, and aftercare plans. No new labs Mental Status Examination: The patient seemed a little bit more hopeful today. She reported that she did phone screenings with a couple of pale places including respites/crisis bed in [place] and reported that she received reassuring feedback. Pt. reported feeling frustrated, discouraged/depressed, and tired of being on the unit Her affect seemed down, denied wishing , and denied thinking of suicide. She was calm and cooperative, showed normal psychomotor activity, and normal speech. She denied homicidal ideation, denied hallucinations, denied feeling paranoid, there were no delusions during the interview. Candie was coherent, there was no thought disorder. alert and oriented to time, place, and person. Assessment: 46-year-old single White Female admitted to [facility] on 08/21/2017 denying thoughts of suicide since 08/23/2017. awaiting placement Diagnoses: Unspecified Depressive Disorder vs. Bipolar II vs. disruptive mood dysregulation disorder Adjustment disorder with depressed mood Other specified personality disorder Treatment Plan Update: Continue same medications Awaiting placement
[2017-09-07 07:51] VITALS: BP 109/66
--- NOTE | 2017-09-07 08:49 | SOCIAL WORKER PROG NOTE PSYCH ---
Social Work Progress Note Progress Note TC - [facility] - informed then referral sent 08/27 and 09/05 - waiting for bed. Spoke with Holli as well she stated patient not appropriate for [facility] due to having [place] that seem likely. Met with [facility] she denied SI/HI, no AH/VH. She stated "I am getting more depressed the longer I am here." Her sleep was mildly disrupted last night. She is motivated to discharge as soon as a bed opens up. Candie was more hopeful today after making calls with this LUCITA to [facility]. She is anxious to discharge. Discussed [facility] as d/c plan and AA meetings ( Called [facility] with Candie this morning - spoke with Malena/ [facility] - who informed us that Danna Turcios of [facility] will call Candie today at 2pm for a phone screening. If she is accepted she can come on Sun. 09/10 - typical admit is in afternoon. [facility] - [address] [place] [address], Bpt. [facility] ph#[phone]. Danna wants to attend [facility] MH program, expected discharge Sun/ next week. Pending acceptance [facility]. She does have a CAN Assessment . 09/11 9am at [facility] ([facility] in [place]. Latest d/c wouild be Monday 09/11 to [facility] CAN Assessment.
--- NOTE | 2017-09-07 12:07 | SOCIAL WORKER PROG NOTE PSYCH ---
Social Work Progress Note Progress Note IGOR GrayShawn BURGESS [id number] 1970 IGOR Samuels JENIFER [id number] Pended Authorization # Client Authorization # Type of Request [id number] CONCURRENT Date of Admission/ Start of Services Requested From Submission Date 08/21/2017 09/07/2017 09/07/2017 Level of Service Type of Service Level of Care Type of Care INPATIENT/OC MENTAL HEALTH INPATIENT INPATIENT HOSPITAL - INPATIENT HOSPITAL
[2017-09-07 12:11] VITALS: BP 124/70
--- NOTE | 2017-09-07 13:39 | SOCIAL WORKER PROG NOTE PSYCH ---
Social Work Progress Note Progress Note I faxed a transfer summary for Candie to [facility] She has an appointment for the mental health track at [facility] for Sunday09/10/17 at 1:15pm.
--- NOTE | 2017-09-07 14:59 | SOCIAL WORKER PROG NOTE PSYCH ---
Social Work Progress Note Progress Note MD to MD requested by [facility] Jennifer. Dr. Calhoun completed MD review with Dr. Em Ph#[phone]. Received call back from Jennifer/[facility] and stay is approved review due 09/10/17. longer she is here. She wants to
[2017-09-07 15:43] VITALS: BP 114/59
--- NOTE | 2017-09-07 17:54 | SOCIAL WORKER PROG NOTE PSYCH ---
Social Work Progress Note Progress Note Received call from Pratibha Sorto of [facility] #[phone]- she was returning Lamar Middleton's call from yesterday, 09/06. She stated there is still a waitlist for Candie - takes a "long time" for the spot to open up. Apparently, Candie cannot stay at this program as it is a substance abuse program and the patient has 7yrs sober. They were concerned about her mental stability which is one of the reasons they didn't accept her for the apprenticeship. ASked her if she could put a "good word" in for the [facility] to accept her into that [facility] program. She stated she will do this and call the director of the program on Sunday.
[2017-09-07 20:34] VITALS: BP 122/62
[2017-09-08 08:06] VITALS: BP 125/63
--- NOTE | 2017-09-08 11:25 | CP SOUTH PROGRESS NOTE PSYCH ---
Psych (Inpt) Progress Note Progress Note Include the following elements, when applicable: Involvement in the active treatment of the patient with behavioral observations of the patient and the patient's response to the treatment. Review of the ongoing treatment process in the context of the treatment plan. Indication of how multi-disciplinary staff members are carrying out the treatment plan. Plans for future interventions and recommendations for revision of the treatment plan. Liaison with other physicians/providers. Progress Note: Pt notes that she is doing well. She is looking forward to discharge Sunday to a half-way where she hopes to be transferred for treatment. She notes that she is a bit anxious about the transition. She denies SI or HI. Notes that she slept well. Current Medications Sig/Levy Start time Last Medication Dose Route Stop Time Status Admin Acetaminophen 650 MG Q4P PRN 08/21 1200 AC PO Albuterol Sulfate 2 PUF Q4 HRS NEEDED PRN 08/21 1715 AC INH Aripiprazole 10 MG DAILY 08/23 0900 AC 09/08 PO 0835 Chlorpromazine 75 MG Q4P PRN 09/05 1515 AC 09/08 PO 1108 Fluoxetine HCl 60 MG DAILY 08/24 0900 AC 09/08 PO 0835 Ibuprofen 600 MG Q6P PRN 08/21 1200 AC 09/02 PO 1146 Nicotine 4 MG Q2 HRS NEEDED PRN 08/22 1315 AC 09/08 PO 0941 Nicotine 21 MG DAILY 08/22 1018 AC 09/08 TOP 0833 Pregabalin 150 MG BID 09/05 0900 AC 09/08 PO 0835 Tiotropium [place] 1 PUF DAILY 08/21 1710 AC 09/08 INH 0834 Trazodone HCl 50 MG AT BEDTIME 08/23 2100 AC 09/07 PO 2117 Vital Signs Date Time Temp Pulse Resp B/P B/P Pulse O2 O2 Flow FiO2 Mean Ox Delivery Rate 09/08 0806 97.2 91 125/63 09/07 2034 97.6 83 122/62 09/07 1543 89 114/59 09/07 1211 76 124/70 MSE Appearance: as stated age Speech : nl rate, rhythm, volume and prosody Behavior: cooperative Motor: no psychomotor agitation or retardation Mood : better now Affect : slightly flat, non-labile, slightly irritable, appropriate, constricted Thought process: linear and goal directed Thought content : no delusions or paranoia Perceptions: denied AVHs, denied SI or HI Insight: poor Judgment: poor A/P: Pt with unspecified depression with worsening mood in the setting of psychosocial stressors now with improved mood awaiting discharge to half-way on Sunday. Continue current medication regimen Encourage integration into the milieu
[2017-09-08 16:02] VITALS: BP 105/62
[2017-09-08 19:57] VITALS: BP 93/57
[2017-09-09 08:13] VITALS: BP 106/67
--- NOTE | 2017-09-09 11:04 | CP SOUTH PROGRESS NOTE PSYCH ---
Psych (Inpt) Progress Note Progress Note Include the following elements, when applicable: Involvement in the active treatment of the patient with behavioral observations of the patient and the patient's response to the treatment. Review of the ongoing treatment process in the context of the treatment plan. Indication of how multi-disciplinary staff members are carrying out the treatment plan. Plans for future interventions and recommendations for revision of the treatment plan. Liaison with other physicians/providers. Progress Note: Pt notes that she has some anxiety around upcoming discharge. She is hopeful that she will like it. She is nervous about the 6pm curfew and feels as though it is very limiting. On the other hand, she is grateful for placement. Denies SI or HI. Current Medications Sig/Levy Start time Last Medication Dose Route Stop Time Status Admin Acetaminophen 650 MG Q4P PRN 08/21 1200 AC PO Albuterol Sulfate 2 PUF Q4 HRS NEEDED PRN 08/21 1715 AC INH Aripiprazole 10 MG DAILY 08/23 0900 AC 09/09 PO 0850 Chlorpromazine 75 MG Q4P PRN 09/05 1515 AC 09/09 PO 1000 Fluoxetine HCl 60 MG DAILY 08/24 0900 AC 09/09 PO 0849 Ibuprofen 600 MG Q6P PRN 08/21 1200 AC 09/02 PO 1146 Nicotine 4 MG Q2 HRS NEEDED PRN 08/22 1315 AC 09/09 PO 0923 Nicotine 21 MG DAILY 08/22 1018 AC 09/09 TOP 0850 Pregabalin 150 MG BID 09/05 0900 AC 09/09 PO 0849 Tiotropium [place] 1 PUF DAILY 08/21 1710 AC 09/09 INH 0848 Trazodone HCl 50 MG AT BEDTIME 08/23 2100 AC 09/08 PO 2115 Vital Signs Date Time Temp Pulse Resp B/P B/P Pulse O2 O2 Flow FiO2 Mean Ox Delivery Rate 09/09 812 98.1 100 106/67 09/08 1957 98.2 90 93/57 09/08 1602 92 105/62 MSE Appearance: as stated age Speech : nl rate, rhythm, volume and prosody Behavior: cooperative Motor: no psychomotor agitation or retardation Mood : a little anxious" Affect : slightly flat, anxious at times, non-labile, not irritable, appropriate, constricted Thought process: linear and goal directed Thought content : no delusions or paranoia Perceptions: denied AVHs, denied SI or HI Insight: poor Judgment: poor A/P: Pt with unspecified depression with worsening mood in the setting of psychosocial stressors now with improved mood awaiting [facility]. Continue current medication regimen Encourage integration into the milieu
[2017-09-09 12:05] VITALS: BP 115/66
[2017-09-09 15:53] VITALS: BP 108/56
[2017-09-09 20:04] VITALS: BP 120/72
[2017-09-10 07:36] VITALS: BP 119/71
--- NOTE | 2017-09-10 08:07 | CP SOUTH PROGRESS NOTE PSYCH ---
Psych (Inpt) Progress Note Progress Note Treatment team (JUDY, RN, Group and Activities Therapist, and psychiatrist) discussed Pt.'s progress, treatment plan, and aftercare plans. Vital Signs Vital Signs Date Time Temp Pulse B/P B/P Pulse O2 FiO2 09/10 0736 97.6 92 119/71 09/10 2003 97.8 84 120/72 09/09 1553 92 108/56 09/09 1205 78 115/66 No new labs Mental Status Examination: The patient seemed a little bit more hopeful today. She reported that she did phone screenings with a couple of pale places including respites/crisis bed in [place] and reported that she received reassuring feedback. Pt. reported feeling frustrated, discouraged/depressed, and tired of being on the unit Her affect seemed down, denied wishing , and denied thinking of suicide. She was calm and cooperative, showed normal psychomotor activity, and normal speech. She denied homicidal ideation, denied hallucinations, denied feeling paranoid, there were no delusions during the interview. Candie was coherent, there was no thought disorder. alert and oriented to time, place, and person. Assessment: 46-year-old single White Female admitted to [facility] on 08/21/2017 denying thoughts of suicide since 08/23/2017. awaiting placement Diagnoses: Unspecified Depressive Disorder vs. Bipolar II vs. disruptive mood dysregulation disorder Adjustment disorder with depressed mood Other specified personality disorder Treatment Plan Update: Continue same medications Awaiting placement
[2017-09-10] MEDS ORDERED: SPIRIVA18 MCG INH (11:24)
[2017-09-10] MEDS ORDERED: CHLORPROMAZINE25 M2 PO (11:26)
--- NOTE | 2017-09-10 11:29 | Patient Discharge Instructions ---
Psych Discharge Inst General Discharge Information Reason for Admission: wishing Psy Discharge Primary Diag+ Unspecified Bipolar Summary Tests/Major Procedures Lab Cholesterol 202 MG/DL H 08/02/17 0637 Cholesterol/HDL Ratio 5.3 % H 08/02/17 0637 HDL Cholesterol 38 mg/dL L 08/02/17 0637 Hemoglobin A1c 5.5 % 08/02/17 0637 LDL Cholesterol, Calc 145 MG/DL H 08/02/17 0637 Total Beta HCG NEGATIVE 08/20/17 1236 Triglycerides 98 mg/dL 08/02/17 0637 Studies Pending at DC: None Patient Instructions Contact Information Your Psychiatrist on [facility] was Unique BALDERRAMA,Shaquille * If you are experiencing an emergency related to this hospitalization, please call [phone] to contact the treating psychiatrist or the psychiatrist-on- call. * To Request a copy of your medical records, please contact the Medical Records Department at [phone]. * To request results of studies pending at the time of discharge, please call [phone]. * Continue your Medications until directed to stop by your Healthcare provider. General Medication Information Please continue to take your new medications and your continued home medications , unless otherwise indicated on your discharge medication list, or unless directed by your MD or SENIOR BILLING CONSULTANT to stop them. Special Instructions Diet Regular Activity Normal - Tobacco Use Treatment Offered Post DC Medications Offered: Script Given-See Med List Post DC Tobacco Treatment Plan: Refused Tobacco Tx Pgm - EtOH/Drug Use D/O Treatment Offered Post DC Medications Offered: NA-No EtOH/Drug Use D/O Post DC EtOH/SubAbuse [place] Plan: NA-No EtOH/Drug Use D/O Advance Directives Does the Patient have Medical Advance Directives No/Refused further info Does Pt have Psychiatric Advance Directives? No/Refused further info Does Patient have a Designated Surrogate Decision Maker: No Information About Psychiatric Advance Directives Provided? Refused Discharge Plan Post Hospital Treatment Plan: [facility]
[2017-09-10 12:27] VITALS: BP 127/69
--- NOTE | 2017-09-10 13:50 | SOCIAL WORKER PROG NOTE PSYCH ---
Social Work Progress Note Progress Note Pt is anxious but prepared for discharge she is hopeful things will work out with the [facility] and [facility]. Pt denies si/hi/ah/vh. Faxed Referral(s) Referred To: [facility] Transition of Care Documents sent: NINA Instructions, Health Summary Faxed to: [facility] Fax #: [phone] Faxed by: Lamar Carvalho Date faxed: 09/10/17 Time Faxed: [phone]
== END 2017-09-10 13:20 | DRG 753 ==
LOC: ERH 12:15 → CP SOUTH 08-21 10:48 → ERHI 08-21 10:48 → EDBEDREQSVC 08-21 11:49 → ENTRNSPT 08-21 13:45 → EDTRNSPTSTS 08-21 14:02 → EDTRNSPT 08-21 14:02 → CP SOUTH 08-21 14:05 → CMPTRNSPT 08-21 14:19 → CP SOUTH 08-30 16:00
PROVIDERS: Physician Assistant Medical
DX: F31.9 Bipolar disorder, unspecified (principal)
CPT/HCPCS: 80307; 81001; 87086; G0463; G0480; J0401; J3490